=== PATIENT | female | born 1975 | race Caucasian/White ===

== ENCOUNTER 2019-05-05 12:39 | Outpatient (RCR) | payer OTHER, SELFPAY ==
--- NOTE | 2019-05-05 14:05 | PTOPEVAL ---
INITIAL PHYSICAL THERAPY EVALUATION and PLAN OF CARE Thank you for referring Kelle to [facility]. She will be seen in PT 2x/wk x 6 wks. Please review, sign, date and return this plan of care RAMAKRISHNA. I agree with and certify that the following plan of care is medically necessary. Referring Physician Date Admitting Provider: Attending Provider: PHYSICIAN NOT ON STAFF Referring Provider: *PT Outpatient Evaluation Start: 05/05/19 12:58 Freq: Status: Active Protocol: Document 05/05/19 12:45 AYUSH (Rec: 05/05/19 14:05 AYUSH [id number]) Therapy Assessment Status Assessment Status Assessment Status Evaluation Outpatient Past Medical History Neurological History Hx Migraine Yes Cardiovascular History Hx Hypertension Yes: states has HBP - no meds Respiratory History Hx Asthma Yes Musculoskeletal History Hx Other Musculoskeletal Disorders Yes: Fall at work 07/07/18 with RIGHT leg nerve damage Reproductive History Hx Other Reproductive Disorders Yes: cyst removed from L ovary -was 3 month at the time Evaluation Information 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 Was supposed to have PT - didn't happen. Went into a boot October 06, 2018 by a MD - doesn't remember his name. No PT was ordered. Dr. Elizondo sent a referral to [facility] - saw Dr. Hancock. Ordered PT - if this doesn't work - then going to pain management. R foot - pain - unable to touch foot too much - when goes to wash foot - has to be very gentle with it. When R foot is in boot - can keep foot straight, but if out of boot - turns foot outwards - needs to hold onto something - has fallen on occasions if tries to ambulate without knee scooter. Will travel through house on computer chair or have children go get item for her. Diagnostic Tests X-Rays For Thi
--- NOTE | 2019-06-04 08:53 | PCPTNOTE ---
PHYSICAL THERAPY DISCHARGE NOTE Admitting Provider: Attending Provider: PHYSICIAN NOT ON STAFF Patient:Kelle Cheema Date of :1975 Kelle has not returned for any further treatments since 05/05/2019, therefore she will be discharged at this time. Patient?s initial visit was on 05/05/2019 and that was the only visit she attended. She was phoned after approval for PT visits was obtained but she did not return the phone call and schedule visits. The goals have not been met. Thank you for referring Kelle to [facility]. Please review, sign, date and return this discharge summary RAMAKRISHNA. I have been updated about Kelle's current status and I agree with discharge from the above service at this time. Referring Physician Date
== END 2019-06-04 16:11 | disposition home or self-care (01) ==
LOC: ANHPT 12:39
PROVIDERS: PCP Emergency Medicine
DX: G90.50 Complex regional pain syndrome I, unspecified (principal)
CPT/HCPCS: 97162

== ENCOUNTER 2019-08-02 13:25 | Emergency (ER) | payer OTHER, SELFPAY ==
[2019-08-02 13:39] VITALS: BP 115/85; PULSE 67; RESP 16; TEMP 37.2; O2SAT 100
--- NOTE | 2019-08-02 13:44 | ED.LOWEXIN ---
HPI - Extremity Injury (Lower) General Chief Complaint: Extremity Injury, Lower Stated Complaint: leg pain Time Seen by Provider: 08/02/19 13:44 Source: patient Mode of arrival: ambulatory Limitations: no limitations History of Present Illness HPI Narrative: Kelle Cheema is a 43 yo female with a PMH of chronic pain from neuropathy/ Regional Pain syndrome , who comes to express care for c/o pain R thigh. Is in boot and using scooter. states she is out of TYlenol 3. Related Data Home Medications Medication Instructions Recorded Confirmed gabapentin 300 mg PO DAILY 12/26/18 08/02/19 acetaminophen-codeine 1 tablet Q6H PRN 08/02/19 08/02/19 Allergies Allergy/AdvReac Type Severity Reaction Status Date / Time aspirin Allergy Mild STOMACH Verified 12/26/18 10:22 ULCERS Sulfa (Sulfonamide AdvReac Unknown Vomiting Verified 08/02/19 13:42 Antibiotics) Honey Bee Allergy Unknown SWELLING Uncoded 12/26/18 10:22 Review of Systems Review of Systems: Narrative: CONSTITUTIONAL: Denies fever, chills, sweats. EYES: Denies visual changes, redness, discharge. ENT: Denies rhinorrhea, congestion, sore throat, otalgia. CARDIOVASCULAR: Denies chest pain, palpitations, edema. RESPIRATORY: Denies dyspnea, wheezing, cough GASTROINTESTINAL: Denies abdominal pain, nausea, vomiting, diarrhea. GENITOURINARY: Denies dysuria, hematuria, abnormal discharge SKIN: Denies rash or itching. NEUROLOGIC: Denies numbness, or focal weakness. PSYCHIATRIC: Denies anxiety or depression. Right thigh pain PMFSH Family History Family History Other No acute medical problems Social History Social History Smoking status: Never smoker Alcohol intake: current Gender identity (if verbalized by the patient): Female Comments At time of signature, I agree with nursing past medical, surgical, social and family history. There is no relevant family history pertinent to the presenting complaint. Exam Narrative: Exam Narrative: GENERAL: This is a well-nourished, well-developed patient, in mild distress. HEAD: normocephalic, atraumatic. EYES: Sclera clear/white. Vision is grossly intact. EARS: External ears normal. Hearing grossly intact. NOSE: External nose normal without nasal discharge, nares without redness, no rhinorrhea. THROAT: Mucous membranes moist, NECK: Neck supple, CARDIOVASCULAR: Regular rate and rhythm without murmurs, gallops, or rubs. RESPIRATORY: Clear to auscultation. Breath sounds equal bilaterally. No wheezes, rales, or rhonchi. GASTROINTESTINAL: Abdomen soft, SKIN: warm, intact with no suspicious lesions or rash, good texture and turgor. NEURO: awake, alert, and oriented to person, place and time. There were no obvious focal neurologic abnormalities. Steady gait EXTREMITIES: Normal range of motion. Right foot is in a boot. Complaining of to lateral side right thigh, appears superficial BACK: Nontender without deformity Course Course Emergency Course: Given baclofen as a muscle relaxant and small number of Tylenol 3 Discussed follow-up with primary care provider if muscle relaxant does not help with issue; she may need more imaging, patient verbalizes understanding. patient has not been in physical therapy for 2 months to [facility], receiving aftercare at [facility] verified no other Tylenol 3 prescriptions in their system Vital Signs Vital signs: Vital Signs Temperature 98.9 F 08/02/19 13:39 Pulse Rate 67 08/02/19 13:39 Respiratory Rate 16 08/02/19 13:39 Blood Pressure 115/85 08/02/19 13:39 Pulse Oximetry 100 08/02/19 13:39 Temperature 98.9 F 08/02/19 13:39 Pulse Rate 67 08/02/19 13:39 Respiratory Rate 16 08/02/19 13:39 Blood Pressure 115/85 08/02/19 13:39 Pulse Oximetry 100 08/02/19 13:39 MDM - Extremity Injury (Lower) Differential Diagnosis Differential diagnosi
== END 2019-08-02 14:19 | disposition home or self-care (01) ==
PROVIDERS: Emergency Provider Nurse Practitioner; PCP Emergency Medicine
DX: M62.838 Other muscle spasm (principal)
CPT/HCPCS: 99213; G0463

== ENCOUNTER 2019-09-22 13:57 | Emergency (ER) | payer OTHER, SELFPAY ==
[2019-09-22 14:11] VITALS: BP 128/70; PULSE 88; RESP 16; TEMP 37.2; O2SAT 99
--- NOTE | 2019-09-22 14:19 | ED.EXTPRO ---
HPI - Extremity Problem General Chief complaint: Extremity Problem,Nontraumatic Stated complaint: right leg muscle spams Time Seen by Provider: 09/22/19 14:19 Source: patient Mode of arrival: ambulatory Limitations: no limitations History of Present Illness HPI Narrative: Kelle Cheema is a 43 yo female with chronic regional pain syndrome who comes to here seeking additional muscle relaxants. She sees Dr. Elizondo who is referred her to pain management and they had DC'd her gabapentin and start her on Lyrica Dr Elizondo had been prescribing her muscle relaxants, then pain management was managing them. She has been unable to get a hold of the pain management doctor and Dr. Alford is tried to reach them also. Related Data Home Medications Medication Instructions Recorded Confirmed pregabalin 75 mg BID 09/22/19 09/22/19 Allergies Allergy/AdvReac Type Severity Reaction Status Date / Time aspirin Allergy Mild STOMACH Verified 12/26/18 10:22 ULCERS Sulfa (Sulfonamide AdvReac Unknown Vomiting Verified 08/02/19 13:42 Antibiotics) Honey Bee Allergy Unknown SWELLING Uncoded 12/26/18 10:22 Review of Systems Review of Systems: Narrative: CONSTITUTIONAL: Denies fever, chills, sweats. EYES: Denies visual changes, redness, discharge. ENT: Denies rhinorrhea, congestion, sore throat, otalgia. CARDIOVASCULAR: Denies chest pain, palpitations, edema. RESPIRATORY: Denies dyspnea, wheezing, cough GASTROINTESTINAL: Denies abdominal pain, nausea, vomiting, diarrhea. GENITOURINARY: Denies dysuria, hematuria, abnormal discharge SKIN: Denies rash or itching. NEUROLOGIC: Denies numbness, or focal weakness. PSYCHIATRIC: Denies anxiety or depression. Muscle relaxants for her regional pain syndrome of her right leg PMFSH Family History Family History (Updated 09/22/19 @ 14:23 by Valerie Balbuena CNP) Other Cerebrovascular accident Diabetes mellitus Heart disease Hypertension Social History Social History (Updated 09/22/19 @ 14:23 by Valerie Balbuena CNP) Smoking status: Never smoker Alcohol intake: never Gender identity (if verbalized by the patient): Female Comments At time of signature, I agree with nursing past medical, surgical, social and family history. There is no relevant family history pertinent to the presenting complaint. Exam Narrative: Exam Narrative: GENERAL: This is a well-nourished, well-developed patient, in moderate distress. HEAD: normocephalic, atraumatic. EYES: Sclera clear/white. Vision is grossly intact. EARS: External ears normal, auditory canals clear and without drainage, TMs normal without perforation. Hearing grossly intact. NOSE: External nose normal without nasal discharge, nares without redness, no rhinorrhea. THROAT: Mucous membranes moist, posterior pharynx NECK: Neck supple, non-tender CARDIOVASCULAR: Regular rate and rhythm without murmurs, gallops, or rubs. RESPIRATORY: Clear to auscultation. Breath sounds equal bilaterally. No wheezes, rales, or rhonchi. GASTROINTESTINAL: Abdomen soft, non-tender, SKIN: warm, intact with no suspicious lesions or rash, good texture and turgor. NEURO: awake, alert, and oriented to person, place and time. There were no obvious focal neurologic abnormalities. Steady gait EXTREMITIES: Normal range of motion on left; boot on right lower extremity unable to walk/weight-bear; she states that she has spasming in her lower l leg and toes BACK: Nontender without deformity Course Course Emergency Course: Patient given prescription for Flexeril-discussed use and pain management for chronic pain, and the providers will be reluctant to provide her additional medications because of the contracts involved in pain management. She is desperate because she is been unable to get a hold of her friction paint machine tender and has an appoint with him on October 04. I told her I would give her enough pills to hold her until that appointment only Vital Signs Vital signs:
== END 2019-09-22 14:41 | disposition home or self-care (01) ==
PROVIDERS: Emergency Provider Nurse Practitioner; PCP Emergency Medicine
DX: G57.71 Causalgia of right lower limb (principal)
CPT/HCPCS: 99213; G0463

== ENCOUNTER 2019-10-23 14:05 | Emergency (ER) | payer OTHER, SELFPAY ==
[2019-10-23 14:26] VITALS: BP 140/97; PULSE 98; RESP 16; TEMP 36.7; O2SAT 100
--- NOTE | 2019-10-23 14:50 | ED.SKABFB ---
HPI - Skin/Abscess/Foreign Bdy General Chief complaint: Skin/Abscess/Foreign Body Stated complaint: poison mickie rash Time Seen by Provider: 10/23/19 14:40 Source: patient and RN notes reviewed Mode of arrival: ambulatory Limitations: no limitations History of Present Illness HPI narrative: 43 year old female who [facility] with complaints of rash to her bilateral forearms and to top of bilateral ears since this morning which is itchy. Patient states that she has not applied any OTC medications to the rash. Patient denies any pain to the areas. Patient states that she thinks that rash is caused from something that her cat got into. Patient denies any other exposure to new soaps, laundry soap, medications, food, or any lotions or perfumes. MD complaint: rash Onset (ago): day(s) (1) Tetanus up to date: yes Location: head (top of ears), LUE and RUE Quality: pruritic Relieving factors: none Exacerbating factors: none Context: other (thinks that rash is from cat) Associated symptoms: denies other symptoms Treatments prior to arrival: none Related Data Allergies Allergy/AdvReac Type Severity Reaction Status Date / Time aspirin Allergy Mild STOMACH Verified 12/26/18 10:22 ULCERS Sulfa (Sulfonamide AdvReac Unknown Vomiting Verified 08/02/19 13:42 Antibiotics) Honey Bee Allergy Unknown SWELLING Uncoded 12/26/18 10:22 Review of Systems Review of Systems: Narrative: CONSTITUTIONAL: Denies fever, chills, or sweats. EYES: Denies visual changes, redness, or discharge. ENT: Denies rhinorrhea, congestion, sore throat, or otalgia. CARDIOVASCULAR: Denies chest pain, palpitations, or edema. RESPIRATORY: Denies cough or dyspnea. GASTROINTESTINAL: Denies abdominal pain, nausea, vomiting, or diarrhea. GENITOURINARY: Denies dysuria or hematuria. SKIN: Positive rash or itching to bilateral forearms and to the top of bilateral ears. MUSCULOSKELETAL: Denies back pain,positive for right ankle joint pain, or myalgia. NEUROLOGIC: Denies headache, numbness, or weakness. PSYCHIATRIC: Denies anxiety or depression. All systems reviewed & are unremarkable except as noted in HPI and below PMFSH Past Medical History Medical History (Updated 10/26/19 @ 19:53 by Vandana Curtis NP) Asthma Bronchitis Complex regional pain syndrome Cyst of ovary Migraines Pneumonia Surgical History Surgical History (Updated 10/26/19 @ 19:50 by Vandana Curtis NP) H/O dilation and curettage H/O: hysterectomy History of removal of ovarian cyst Previous section Family History Family History (Updated 09/22/19 @ 14:23 by Valerie Balbuena CNP) Other Cerebrovascular accident Diabetes mellitus Heart disease Hypertension Social History Social History (Updated 10/26/19 @ 19:48 by Vandana Curtis NP) Smoking status: Former smoker Tobacco type: cigarettes Alcohol intake: unknown Substance use type: opiates Living arrangements: with family Gender identity (if verbalized by the patient): Female Comments At time of signature, agree with nursing past medical, surgical, social and family history. There is no relevant family history pertinent to the presenting complaint Exam Narrative: Exam Narrative: GENERAL: Well-appearing, well-nourished, and in no acute distress. HEAD: Normocephalic, atraumatic. EYES: PERRLA and EOMI. ENT: Nares clear, no rhinorrhea or epistaxis. Mucous membranes moist. NECK: Supple. CHEST: Clear to auscultation. No respiratory distress. HEART: Regular rate and rhythm. No murmur heard. Normal peripheral pulses. ABDOMEN: Soft, nontender, nondistended, normal active bowel sounds. EXTREMITIES: Normal range of motion. No edema.RSD to right lower leg wearing walking boot an using knee scooter SKIN: Warm, dry,red small macular rash noted to bilateral inner forearms and to the top of both ears, no drainage or vesicles noted. Denies any pain to sites. NEURO: No focal deficits. Alert and
== END 2019-10-23 15:08 | disposition home or self-care (01) ==
PROVIDERS: Emergency Provider Registered Nurse; PCP Emergency Medicine
DX: L23.9 Allergic contact dermatitis, unspecified cause (principal); Z87.891 Personal history of nicotine dependence; J45.909 Unspecified asthma, uncomplicated
CPT/HCPCS: 99213; G0463

== ENCOUNTER 2019-12-23 15:00 | Outpatient (RCR) | payer OTHER, SELFPAY ==
--- NOTE | 2019-11-04 15:24 | PTOPEVAL ---
Thank you for referring Kelle Cheema to [facility].? The patient is scheduled to be seen for therapy? 1 x/week for 4 weeks. Please review, sign, date and return this plan of care RAMAKRISHNA. I agree with and certify that the following plan of care is medically necessary. Referring Physician Date Admitting Provider: Attending Provider: Torrie Mchugh, FUNERAL PLANNER-BC Referring Provider: *PT Outpatient Evaluation Start: 11/04/19 13:51 Freq: Status: Active Protocol: Document 11/04/19 13:57 TLM (Rec: 11/04/19 14:40 TLM [id number]) Therapy Assessment Status Assessment Status Assessment Status Evaluation Outpatient Past Medical History Past Medical History Source of Past Medical History Recalled from Previous Visit, Confirmed with Patient/Family Neurological History Hx Migraine Yes Hx Other Neurological Disorders Yes Respiratory History Hx Asthma Yes Gastrointestinal History Hx Ulcer Yes Genitourinary History Hx Genitourinary Disorders No Significant History Musculoskeletal History Hx Other Musculoskeletal Disorders Yes: regional pain syndrome, non healing injury to right lower leg,has walk boot Hx Section Yes Hx Hysterectomy Yes Hx Other Reproductive Disorders Yes: cyst removed from L ovary -was 3 month at the time Psychosocial History Hx Psychiatric Disorders No Significant History Pain History Has Past Pain Affected Your Daily Life Yes: regional pain syndrome History of Long-Term Prescription Pain Yes: Tylenol 3 Medication Use (Opiates) Evaluation Information Problem Diagnosis Chronic regional pain syndrome - R ankle Additional Evaluation Detail Diagnostic US findings 09/10/19 - Mild PF with spurring at calcaneal tubercle. - OA of subtalar and tibiotalar joints. - Chronic appearing low grade sprain of the deltoid ligaments. Subjective Information ~1 year ago fell into a Query Text:As Reported By Patient/ chicken cage at work that Family threw her into a fence. Rolled her R ankle. Continued to work on it. Went to ER about a week later where they did xrays and diagnoses with a R ankle sprain. Was using a knee
--- NOTE | 2019-12-01 13:58 | PCPTNOTE ---
Admitting Provider: Attending Provider: Torrie Mchugh, BODY AND FENDER WORKER-BC Patient:Kelle Cheema Date of :1975 Physical Therapy Discharge Note Patient has not returned for any further treatments since 11/04/2019, therefore she will be discharged at this time. Patient?s initial visit was on 10/30/2019 14:15 and she had a total of 1 visit due did not return our calls to schedule her follow-up visits. The goals have not been met due to only seen for initial evaluation. Thank you for referring this patient to [facility]. Please review, sign, date and return this discharge summary RAMAKRISHNA. I have been updated about the patient's current status and I agree with discharge from the above service at this time. Referring Physician Date
--- NOTE | 2019-12-02 14:46 | PCPTNOTE ---
Pt called to schedule a f/u visit after therapy DC note was written. Will plan to complete a therapy re-eval on 12/02/19 to determine therapy impairments, goal and need for additional skilled therapy services.
--- NOTE | 2019-12-02 16:58 | PTOPEVAL ---
PHYSICAL THERAPY REEVALUATION Thank you for referring Kelle Cheema to [facility].? The patient is scheduled to be seen for therapy? 1x/week for 4 weeks. Please review, sign, date and return this plan of care RAMAKRISHNA. I agree with and certify that the following plan of care is medically necessary. Referring Physician Date Attending Provider: Torrie Mchugh, SUSAN *PT Outpatient Evaluation Start: 11/04/19 13:51 Freq: Status: Active Protocol: Document 12/02/19 15:56 MLV (Rec: 12/02/19 16:52 [facility] [email or web address]) Therapy Assessment Status Evaluation Information Problem Diagnosis Chronic regional pain syndrome - R ankle Additional Evaluation Detail Diagnostic US findings 09/10/19 - Mild PF with spurring at calcaneal tubercle. - OA of subtalar and tibiotalar joints. - Chronic appearing low grade sprain of the deltoid ligaments. Subjective Information ~1 year ago fell into a Query Text:As Reported By Patient/ chicken cage at work that Family threw her into a fence. Rolled her R ankle. Continued to work on it. Went to ER about a week later where they did xrays and diagnoses with a R ankle sprain. Was using a knee scooter for a year and recently got an electric scooter that she's been using for mobility for 4 months. Unable to use knee scooter due to pain at R knee. Has been wearing walking boot for a year and presents to PT evaluation wearing it. Pt reports she had a PT evaluation in Mar 2019 where there therapist pulled on her R ankle which caused symptoms to start in her R shoulder/ elbow/fingers. Covid ramped up so she didn't make it to any treatments and didn't want to work with initial PT. Uses pillow under foot to get herself comfortable. Averages
--- NOTE | 2019-12-23 15:41 | PCPTNOTE ---
Addendum entered by Tanya Lara, PT 12/23/19 15:44: PHYSICAL THERAPY DISCHARGE NOTE: Original Note: Admitting Provider: Attending Provider: Torrie Mchugh, [employer] FOR[employer] SENIOR SERGEANT- Patient:Kelle Cheema Date of :1975 Patient has not been able to tolerate the minimal of therapy treatments since 12/16/2019, therefore she will be discharged at this time. The patient is not meeting any of her goals set. The patient?s initial visit was on 10/30/2019 14:15 and she had a total of 5 visits. PT recommended patient to follow up with her primary MD. Thank you for referring this patient to [facility]. Please review, sign, date and return this discharge summary RAMAKRISHNA. I have been updated about the patient's current status and I agree with discharge from the above service at this time. Referring Physician Date
== END 2019-12-25 09:33 | disposition home or self-care (01) ==
LOC: ANHPT 15:00
PROVIDERS: PCP Emergency Medicine; Visit Provider Nurse Practitioner Family
DX: M25.571 Pain in right ankle and joints of right foot (principal)
CPT/HCPCS: 97110; 97140; 97161; 97530

== ENCOUNTER 2020-09-02 16:16 | Emergency (ER) | payer OTHER, SELFPAY ==
[2020-09-02 16:23] VITALS: BP 150/95; PULSE 84; RESP 20; TEMP 36.4; O2SAT 100
--- NOTE | 2020-09-02 16:34 | ED.GENADULT ---
HPI - General Adult General Chief complaint: Skin/Abscess/Foreign Body Stated complaint: wound Time Seen by Provider: 09/02/20 16:34 Source: patient and RN notes reviewed Mode of arrival: ambulatory Limitations: no limitations History of Present Illness HPI narrative: 44-year-old female presents with a wound to the abdominal wall with tenderness, odor, and drainage for the past 7 days. Kelle reports having a piercing done and 2 days later noticed drainage and 7 days later intermittent drainage and odor, piercing removed resulted in splinting in skin. Peroxide cleaning and VAHID without relief. Denies swelling to the area. No streaking. Denies fever or chills. Denies nausea, vomiting, and abdominal pain. Tolerating po intake well. LMP hysterectomy. Remains active. The patient reports she has not been diagnosed with COVID-19. The patient reports she is not waiting for the results of a COVID-19 lab test. The patient reports she does not have weakness. The patient reports she does not have a new or worsening cough or shortness of breath. Denies chest pain. The patient reports she does not have any rhinorrhea, congestion, sore throat, loss of taste, and diarrhea. Denies recent traveling. Denies concerns for COVID-19 or exposures. At this time, the patient is not suspected of having COVID-19. Some parts of this dictation were generated by voice recognition software and may contain typographical and/or grammatical inaccuracies. Related Data Home Medications Medication Instructions Recorded Confirmed bupropion HCl 150 mg PO DAILY 09/02/20 09/02/20 duloxetine 60 mg PO BID 09/02/20 09/02/20 meloxicam 15 mg PO DAILY 09/02/20 09/02/20 pregabalin 100 mg PO BID 09/02/20 09/02/20 zolpidem 10 mg PO HS PRN 09/02/20 09/02/20 Allergies Allergy/AdvReac Type Severity Reaction Status Date / Time aspirin Allergy Mild STOMACH Verified 09/02/20 16:32 ULCERS Sulfa (Sulfonamide AdvReac Unknown Vomiting Verified 09/02/20 16:32 Antibiotics) Honey Bee Allergy Unknown SWELLING Uncoded 09/02/20 16:32 Review of Systems Review of Systems: Narrative: CONSTITUTIONAL: Denies fever, chills, sweats. EYES: Denies visual changes, redness, discharge. ENT: Denies rhinorrhea, congestion, sore throat, otalgia. CARDIOVASCULAR: Denies chest pain, palpitations, edema. RESPIRATORY: Denies dyspnea, wheezing, cough GASTROINTESTINAL: Denies abdominal pain, nausea, vomiting, diarrhea. SKIN: Complains of wound to the abdominal wall with tenderness, odor, and drainage. MUSCULOSKELETAL: Denies acute back pain, joint pain, or myalgia. NEUROLOGIC: Denies numbness or focal weakness. PSYCHIATRIC: Denies anxiety or depression. All other systems reviewed are negative, except as documented in HPI and below. [facility] Past Medical History Medical History Asthma Bronchitis Complex regional pain syndrome Cyst of ovary Migraines Pneumonia Surgical History Surgical History H/O dilation and curettage H/O: hysterectomy History of removal of ovarian cyst Previous section Family History Family History Other Cerebrovascular accident Diabetes mellitus Heart disease Hypertension Social History Social History (Updated 09/02/20 @ 17:34 by MIRIAN Michel) Smoking status: Former smoker Tobacco type: cigarettes Second hand tobacco smoke exposure: No Alcohol intake: never Substance use: current Substance use type: opiates Living arrangements: with family Occupation/Education: unemployed Gender identity (if verbalized by the patient): Female Sexual Orientation (if Verbalized by the Patient): Straight or Heterosexual Comments At time of signature, agree with the nurse past medical, surgical, social, and family history. There is no relevant famil
== END 2020-09-02 17:17 | disposition home or self-care (01) ==
PROVIDERS: Emergency Provider Nurse Practitioner Family; PCP Family Medicine
DX: S31.109A Unspecified open wound of abdominal wall, unspecified quadrant without penetration into peritoneal cavity, initial encounter (principal); X58.XXXA Exposure to other specified factors, initial encounter; J45.909 Unspecified asthma, uncomplicated; Z87.891 Personal history of nicotine dependence
CPT/HCPCS: 87070; 87075; 87205; 99202; 99203; G0463

== ENCOUNTER 2020-09-21 11:14 | Emergency (ER) | payer OTHER, SELFPAY ==
[2020-09-21 11:24] VITALS: BP 126/89; PULSE 91; RESP 20; TEMP 36.4; O2SAT 100
--- NOTE | 2020-09-21 11:30 | ED.GENADULT ---
HPI - General Adult General Chief complaint: Extremity Injury, Lower Stated complaint: right leg pain Time Seen by Provider: 09/21/20 11:30 Source: patient and RN notes reviewed Mode of arrival: ambulatory (with medical knee walker scooter) Limitations: no limitations History of Present Illness HPI narrative: 44-year-old female presents with complaints of chronic right shoulder and right leg pain for years. ?Kelle reports increasing pain over the past 4-5 days. ?Reports of a fall 3 days ago in which she hit left leg and has bruises. ?She is out of routine with Lyrica and needs a refill. Reports PMD is out for surgery or something and can not get an appointment and there is no other physician covering. ?Routine medications without relief. History of Complex regional pain syndrome. ?Kelle was treated here on 09/02/2020 and given 15 days of Nikole and instructed to follow-up with her PMD office. ?Denies new numbness or tingling. ?Spasms throughout the RT leg causing increasing pain. ?New injury mentioned above, patient voiced she knows it is nothing. ?Denies hitting head, loss of consciousness, syncopal episodes, dizziness, or seizure activity. ?Hurts with movement of RT shoulder. Intermittent radiating pain throughout RUE. ?No loss of mobility. ?No swelling. Exacerbating factor is movement. No relieving factors. ?The dominant hand is the RIGHT HAND. ?Denies fever or chills. ?Denies nausea, vomiting, and abdominal pain. Tolerating po intake well. ?LMP hysterectomy. ?Remains active. ?The patient reports she has not been diagnosed with COVID-19. ?The patient reports she is not waiting for the results of a COVID-19 lab test. ?The patient reports she does not have weakness. The patient reports she does not have a new or worsening cough or shortness of breath. ?Denies chest pain. ?The patient reports she does not have any rhinorrhea, congestion, sore throat, loss of taste, and diarrhea. ?Denies recent traveling. ?Denies concerns for COVID-19 or exposures. ?At this time, the patient is not suspected of having COVID-19. Some parts of this dictation were generated by voice recognition software and may contain typographical and/or grammatical inaccuracies. Related Data Home Medications Medication Instructions Recorded Confirmed bupropion HCl 150 mg PO DAILY 09/02/20 09/21/20 duloxetine 60 mg PO BID 09/02/20 09/21/20 pregabalin 100 mg PO BID 09/02/20 09/21/20 zolpidem 10 mg PO HS PRN 09/02/20 09/21/20 Allergies Allergy/AdvReac Type Severity Reaction Status Date / Time aspirin Allergy Mild STOMACH Verified 09/21/20 11:18 ULCERS Sulfa (Sulfonamide AdvReac Intermediate Vomiting Verified 09/21/20 11:18 Antibiotics) Honey Bee Allergy Severe SWELLING Uncoded 09/21/20 11:18 Review of Systems Review of Systems: CONSTITUTIONAL: Denies fever, chills, sweats. Complaints of needing medication refilled. EYES: Denies visual changes, redness, discharge. ENT: Denies rhinorrhea, congestion, sore throat, otalgia. CARDIOVASCULAR: Denies chest pain, palpitations, edema. RESPIRATORY: Denies dyspnea, wheezing, cough. GASTROINTESTINAL: Denies abdominal pain, nausea, vomiting, diarrhea. SKIN: Denies rash or itching. Complaints of bruising to the left lower leg after a recent fall. MUSCULOSKELETAL: Denies acute back pain or myalgia. Complains of chronic right shoulder and right leg pain, intermittent spasms. NEUROLOGIC: Denies numbness or focal weakness. PSYCHIATRIC: Denies anxiety or depression. All other systems reviewed & are unremarkable except as noted in HPI and below. [facility] Past Medical History Medical History Asthma Bronchitis Complex regional pain syndrome Cyst of ovary Migraines Pneumonia Surgical History Surgical History H/O dilation and curettage H/O: hysterectomy History of removal of ovarian cyst Previous se
== END 2020-09-21 12:15 | disposition home or self-care (01) ==
PROVIDERS: Emergency Provider Nurse Practitioner Family; PCP Family Medicine
DX: G89.29 Other chronic pain (principal); M25.511 Pain in right shoulder; M79.604 Pain in right leg; J45.909 Unspecified asthma, uncomplicated; Z87.891 Personal history of nicotine dependence
CPT/HCPCS: 99212; G0463

== ENCOUNTER 2022-10-11 13:57 | Emergency (ER) | payer OTHER, SELFPAY ==
[2022-10-11 14:06] VITALS: BP 127/71; PULSE 86; RESP 18; TEMP 36.3; O2SAT 100
--- NOTE | 2022-10-11 14:21 | ED.SKABFB ---
HPI - Skin/Abscess/Foreign Bdy General Chief complaint: Skin/Abscess/Foreign Body Stated complaint: rash Time Seen by Provider: 10/11/22 14:17 Source: patient and RN notes reviewed Mode of arrival: ambulatory Limitations: no limitations History of Present Illness HPI narrative: Patient presents today complaining of possible exposure to poison mickie and pruritic rash to her neck since yesterday. States that she was likely exposed to poison mickie from her dog rolling around by it. She has tried cold compresses, but no other treatment prior to arrival. Related Data Home Medications Medication Instructions Recorded Confirmed bupropion HCl 150 mg 24 hr tablet, 150 mg PO DAILY 09/02/20 10/11/22 extended release duloxetine 60 mg capsule,delayed 60 mg PO BID 09/02/20 10/11/22 release pregabalin 100 mg capsule 100 mg PO BID 09/02/20 10/11/22 zolpidem 10 mg tablet 10 mg PO HS PRN Insomnia 09/02/20 10/11/22 Allergies Allergy/AdvReac Type Severity Reaction Status Date / Time aspirin Allergy Mild STOMACH Verified 10/11/22 14:07 ULCERS Sulfa (Sulfonamide AdvReac Intermediate Vomiting Verified 10/11/22 14:07 Antibiotics) Honey Bee Allergy Severe SWELLING Uncoded 10/11/22 14:07 Review of Systems Review of Systems: CONSTITUTIONAL: Denies body aches, fever, chills, or sweats. EYES: Denies visual changes, redness, or discharge. ENT: Denies rhinorrhea, congestion, sore throat, or otalgia. CARDIOVASCULAR: Denies chest pain, palpitations, or edema. RESPIRATORY: Denies cough or dyspnea. GASTROINTESTINAL: Denies abdominal pain, nausea, vomiting, or diarrhea. GENITOURINARY: Denies dysuria or hematuria. SKIN: + severely pruritic rash to neck MUSCULOSKELETAL: Denies back pain, joint pain, or myalgia. NEUROLOGIC: Denies headache, numbness, tingling, or weakness. PSYCH: Denies depression or anxiety. [facility] Past Medical History Medical History Asthma Bronchitis Complex regional pain syndrome Cyst of ovary Migraines Pneumonia Surgical History Surgical History H/O dilation and curettage H/O: hysterectomy History of removal of ovarian cyst Previous section Family History Family History Other Cerebrovascular accident Diabetes mellitus Heart disease Hypertension Social History Social History Smoking status: Former smoker Tobacco type: cigarettes Second hand tobacco smoke exposure: No Alcohol intake: never Substance use: current Substance use type: opiates Living arrangements: with family Occupation/Education: unemployed Gender identity (if verbalized by the patient): Female Sexual Orientation (if Verbalized by the Patient): Straight or Heterosexual Comments At time of signature, I have reviewed and agree with nursing past medical, surgical, social and family history unless otherwise noted. Please see nursing chart for further information. There is no relevant family history pertinent to the presenting complaint Exam Narrative: GENERAL: Well-appearing, well-nourished, and in no acute distress. HEAD: Normocephalic, atraumatic. EYES: EOMI. No redness or drainage. Conjunctivae normal. ENT: Mucous membranes pink and moist. NECK: Normal AROM. CHEST: No respiratory distress. EXTREMITIES: Normal range of motion. No edema. SKIN: Warm, dry. Capillary refill normal. Normal skin turgor. Erythematous papular rash to bilateral anterior neck with few small vesicles. No induration or active drainage. NEURO: No focal deficits. Alert and oriented x3. Gait steady. PSYCH: Normal affect. No signs of depression or anxiety. Course Course Level of Care: Express Care Visit Vital Signs Vital signs: Vital Signs Temperature 97.4 F L
== END 2022-10-11 14:30 | disposition home or self-care (01) ==
PROVIDERS: Emergency Provider Nurse Practitioner; PCP Physician Assistant
DX: L25.5 Unspecified contact dermatitis due to plants, except food (principal); Z87.891 Personal history of nicotine dependence; J45.909 Unspecified asthma, uncomplicated
CPT/HCPCS: 99213; G0463

== ENCOUNTER 2023-09-01 15:39 | Emergency (ER) | payer OTHER, SELFPAY ==
[2023-09-01 15:48] VITALS: BP 137/82; PULSE 74; RESP 16; TEMP 36.6; O2SAT 100
--- NOTE | 2023-09-01 15:48 | ED.SKABFB ---
HPI - Skin/Abscess/Foreign Bdy General Chief complaint: Skin/Abscess/Foreign Body Stated complaint: EARACHE/RASH Time Seen by Provider: 09/01/23 15:48 History of Present Illness HPI narrative: patient presents with complaints of rash to bilateral lower legs and a right-sided earache. She reports that Lenard has been present for approximately 3 days. She is unclear about the timeline to the rash on her legs. She believes the rash is poison mickie. She denies any fever, chills, sweats. Denies any runny nose or sore throat Related Data Home Medications Medication Instructions Recorded Confirmed pregabalin 100 mg capsule 100 mg PO BID 09/02/20 10/11/22 B Complex-Vitamin B12 09/01/23 meloxicam 15 mg tablet mg 09/01/23 Allergies Allergy/AdvReac Type Severity Reaction Status Date / Time aspirin Allergy Mild STOMACH Verified 10/11/22 14:07 ULCERS Sulfa (Sulfonamide AdvReac Intermediate Vomiting Verified 10/11/22 14:07 Antibiotics) Honey Bee Allergy Severe SWELLING Uncoded 10/11/22 14:07 Review of Systems Review of Systems: All systems reviewed & are unremarkable except as noted in HPI and below Constitutional: Constitutional: Reports as per HPI and Reports no additional constitutional complaints ENT: Reports system reviewed and no additional complaints, except as documented and Reports otalgia Cardiovascular: Cardiovascular: Reports no additional cardiovascular complaints Respiratory: Respiratory: Reports no additional respiratory complaints Integumentary/Breasts: Skin/Breast: Reports rash Comments: bilat legs PMFSH Past Medical History Medical History Asthma Bronchitis Complex regional pain syndrome Cyst of ovary Migraines Pneumonia Surgical History Surgical History H/O dilation and curettage H/O: hysterectomy History of removal of ovarian cyst Previous section Family History Family History Other Cerebrovascular accident Diabetes mellitus Heart disease Hypertension Social History Social History Smoking status: Former smoker Tobacco type: cigarettes Second hand tobacco smoke exposure: No Alcohol intake: never Substance use: current Substance use type: opiates Living arrangements: with family Occupation/Education: unemployed Gender identity (if verbalized by the patient): Female Sexual Orientation (if Verbalized by the Patient): Straight or Heterosexual Exam Const: General: cooperative, no acute distress, alert and awake Orientation/consciousness: oriented to person, oriented to place and oriented to time HENMT: Head: normal to inspection Ears: external ears normal, TM's normal bilaterally and EAC's normal Mouth: Yes moist mucous membranes Throat: no postnasal drainage Resp: Effort & Inspection: normal respiratory effort and able to speak in complete sentences Auscultation: clear to auscultation bilaterally, no crackles, no rales, no rhonchi and no wheezes Cardio: Palpation: normal PMI Rate: regular rate Rhythm: regular rhythm Heart sounds: S1 normal heart sound present and S2 normal heart sound present Skin: Other: there are several scattered macules to bilateral legs. Some Marco A though they have been scratched and have scabs. They are in multiple stages of healing, some appear almost to be scarred. They are consistent with insect bites, not at all consistent with poison mickie Neuro: General: oriented to person, oriented to place and oriented to time Cranial nerves: Yes CN's II-XII intact bilaterally Psych: Appearance: grossly normal Thought process: Normal thought process present Insight: Good insight present (Psych) Judgement: Good judgement present (Psych) Course Course Level of Care: Express Care Vis
== END 2023-09-01 16:20 | disposition home or self-care (01) ==
PROVIDERS: Emergency Provider Nurse Practitioner Family; PCP Physician Assistant
DX: L30.9 Dermatitis, unspecified (principal); S80.862A Insect bite (nonvenomous), left lower leg, initial encounter; S80.861A Insect bite (nonvenomous), right lower leg, initial encounter; W57.XXXA Bitten or stung by nonvenomous insect and other nonvenomous arthropods, initial encounter; Z87.891 Personal history of nicotine dependence; J45.909 Unspecified asthma, uncomplicated
CPT/HCPCS: 99213; G0463

== ENCOUNTER 2024-01-12 10:16 | Emergency (ER) | payer OTHER, SELFPAY ==
--- NOTE | ~2024-01-12 | XR_ITS ---
EXAMINATION: XR chest 2V DATE: 01/12/2024 11:25 INDICATION: Shortness of breath TECHNIQUE: frontal and lateral views of the chest were obtained. COMPARISON: Chest radiograph dated 09/19/2005 FINDINGS: The lungs are clear with no focal airspace opacities, pulmonary edema, pleural effusion or pneumothor ax. The cardiomediastinal silhouette is normal. Mild thoracic spondylosis. IMPRESSION: 1. No acute cardiopulmonary disease. Reviewed, dictated and finalized at location A. OUT WAITER/WAITRESS
[2024-01-12 10:45] VITALS: BP 137/66; PULSE 85; RESP 24; TEMP 36.6; O2SAT 99
--- NOTE | 2024-01-12 11:08 | ED_ITS ---
HPI - General Adult General Chief complaint: Upper Respiratory Infection Stated complaint: chest tightness Time Seen by Provider: 01/12/24 11:08 Source: patient Mode of arrival: ambulatory Limitations: no limitations History of Present Illness HPI narrative: 48-year-old female patient presents to the [facility] with complaints of shortness of breath and some chest tightness. Patient does have a history of asthma and was a former smoker but quit about 24 years ago. Denies any fevers, body aches or chills that she is aware of. Patient states she has had a very bad cough and chest tightness but denies any congestion, runny nose. Denies any ear pain or sore throat. Denies any abdominal pain, nausea, vomiting or diarrhea. Related Data Home Medications Medication Instructions Recorded Confirmed pregabalin 100 mg capsule 100 mg PO BID 09/02/20 10/11/22 B Complex-Vitamin B12 09/01/23 meloxicam 15 mg tablet mg 09/01/23 Allergies Allergy/AdvReac Type Severity Reaction Status Date / Time aspirin Allergy Mild STOMACH Verified 01/12/24 10:59 ULCERS Sulfa (Sulfonamide AdvReac Intermediate Vomiting Verified 01/12/24 10:59 Antibiotics) Honey Bee Allergy Severe SWELLING Uncoded 01/12/24 10:59 Review of Systems Review of Systems: CONSTITUTIONAL: Denies fever, chills, or sweats. EYES: Denies visual changes, redness, or discharge. ENT: Denies rhinorrhea, congestion, sore throat, or otalgia. CARDIOVASCULAR: positive chest tightness, denies palpitations, or edema. RESPIRATORY: Positive cough with dyspnea. GASTROINTESTINAL: Denies abdominal pain, nausea, vomiting, or diarrhea. GENITOURINARY: Denies dysuria or hematuria. SKIN: Denies rash or itching. MUSCULOSKELETAL: Denies back pain, joint pain, or myalgia. NEUROLOGIC: Denies headache, numbness, or weakness. PSYCHIATRIC: Denies anxiety or depression. [facility] Past Medical History Medical History Asthma Bronchitis Complex regional pain syndrome Cyst of ovary Migraines Pneumonia Surgical History Surgical History H/O dilation and curettage H/O: hysterectomy History of removal of ovarian cyst Previous section Family History Family History Other Cerebrovascular accident Diabetes mellitus Heart disease Hypertension Social History Social History Smoking status: Former smoker Tobacco type: cigarettes Second hand tobacco smoke exposure: No Alcohol intake: never Substance use: current Substance use type: opiates Living arrangements: with family Occupation/Education: unemployed Gender identity (if verbalized by the patient): Female Sexual Orientation (if Verbalized by the Patient): Straight or Heterosexual Comments At the time of my signature I agree with nursing past medical history, surgical, social, and family history. There is no relevant family history pertinent to the presenting complaint. Exam Narrative: GENERAL: ill-appearing, well-nourished, and in no acute distress. HEAD: Normocephalic, atraumatic. EYES: PERRLA and EOMI. ENT: Nares with erythema edema noted bilaterally, no rhinorrhea or epistaxis. Mucous membranes moist. posterior pharynx with no erythema, tonsillar enlargement, exudates or lesions present. Bilateral TMs are clear no erythema or foreign bodies the canal. NECK: Supple. No lymphadenopathy CHEST: Clear to auscultation. Patient is talking in broken sentences and is taking some big deep breaths and does appear some what struggling with shortness of breath. No tripoding noted HEART: Regular rate and rhythm. No murmur heard. Normal peripheral pulses. ABDOMEN: Soft, nontender, nondistended, normal active bowel sounds. EXTREMITIES: Normal range of motion. No edema. SKIN: Warm, dry, no rash. NEURO: No focal deficits. Alert and oriented x3. Course Course Level of Care: Express Care Visit Reevaluation(s) Reevaluation #1: re-evaluated patient notified her that her x-ray EKG looks good and did not suggest any type of cardiac or pulmonary issue going on. Her viral swabs were also negative today as well. Discussed with her she could have a virus and has having the asthma exacerbation to it which we will go ahead and provide her a DuoNeb before discharging her today and discharge her home with an inhaler, steroids and Tessalon Perles for the coughing. Discussed with patient patient states she has had heartburn before in the past will discharge home with some omeprazole which could definitely could case a cough and chest tightness as well. Discussed with patient that she should decrease her high acid foods. Patient verbalized understanding denies any other questions or concerns at this time. Date: 01/12/24 Time: 12:00 Vital Signs Vital signs: Vital Signs Temperature 36.6 C 01/12/24 10:45 Pulse Rate 85 01/12/24 10:45 Respiratory Rate 24 H 01/12/24 10:45 Blood Pressure 137/66 01/12/24 10:45 Pulse Oximetry 99 01/12/24 10:45 Oxygen Delivery Room Air 01/12/24 10:45 Temperature 36.6 C 01/12/24 10:45 Pulse Rate 85 01/12/24 10:45 Respiratory Rate 24 H 01/12/24 10:45 Blood Pressure 137/66 01/12/24 10:45 Pulse Oximetry 99 01/12/24 10:45 Oxygen Delivery Room Air 01/12/24 10:45 Vital signs reviewed. Medical Decision Making MDM Narrative Medical decision making narrative: plan of care patient is to check an EKG, chest x-ray to swab her for COVID and influenza. I will reassess her once this has resulted Differential Diagnosis Differential Diagnosis: Differential diagnosis: Allergic rhinitis, chronic sinusitis, tonsillitis, acute sinusitis, infectious mononucleosis, seasonal influenza, pertussis, diphtheria, meningococcal disease, viral syndrome, viral bronchitis, RSV, COVID- 19 Vital Signs Vital Signs: Vital Signs Temperature 36.6 C 01/12/24 10:45 Pulse Rate 85 01/12/24 10:45 Respiratory Rate 24 H 01/12/24 10:45 Blood Pressure 137/66 01/12/24 10:45 Pulse Oximetry 99 01/12/24 10:45 Oxygen Delivery Room Air 01/12/24 10:45 Temperature 36.6 C 01/12/24 10:45 Pulse Rate 85 01/12/24 10:45 Respiratory Rate 24 H 01/12/24 10:45 Blood Pressure 137/66 01/12/24 10:45 Pulse Oximetry 99 01/12/24 10:45 Oxygen Delivery Room Air 01/12/24 10:45 Lab Data Labs: Lab Results 01/12/24 Range/Units 11:39 POC Influenza A Ag Negative (Negative) POC Influenza B Ag Negative (Negative) POC SARS CoV-2 Ag Negative (Negative) Imaging Data Radiologist's impression: [facility] [address] [address] XRay Report Signed Patient: Kelle Cheema : 1975 MR#: [id number] Age: 48 Acct:[id number] Loc: [facility] ADM Date: 01/12/24Attending Dr: Ordering Physician: Chuyita Hazel APRN Date of Service: 01/12/24 Procedure(s): XR chest 2V Accession Number(s): [id number] cc: Jack, Radha Alegria PA-C; Chuyita Hazel APRN~ EXAMINATION: XR chest 2V DATE: 01/12/2024 11:25 INDICATION: Shortness of breath TECHNIQUE: frontal and lateral views of the chest were obtained. COMPARISON: Chest radiograph dated 09/19/2005 FINDINGS: The lungs are clear with no focal airspace opacities, pulmonary edema, pleural effusion or pneumothorax. The cardiomediastinal silhouette is normal. Mild thoracic spondylosis. IMPRESSION: 1. No acute cardiopulmonary disease. Reviewed, dictated and finalized at location A. ANALYSIS ASSISTANT Dictated By: Baron Melton MD 01/12/24 1142 Signed By: <Electronically signed by Baron Melton MD in OV> ECG Data EKG #1: Interpretation: Sinus rhythm. Normal ECG. Unconfirmed report. Vent rate: 69 IL interval: 147 QRS duration: 94 QT/ QTC: 375/394 P-R- T axes: 37, 4, 27. Critical Care Time Critical Care Time Critical Care Time: No Discharge Plan Discharge Clinical Impression: Viral URI with cough, Chest pain due to GERD Patient Disposition: Home, Self-Care Condition: Stable Instructions: Antibiotic Form, GERD (Gastroesophageal Reflux Disease) (ED) Additional Instructions: Viral illness may last between 7-12days; antibiotic is NOT recommended at this time. Recommend antihistamine such as Benadryl at night time and Claritin/Zyrtec/Dalila during the day Cough syrup may cause drowsiness; avoid driving or take it at night time. Use inhaler as needed for cough, wheezing, shortness of breath or chest tightness. Also, recommend symptomatic treatment includes: rest, fluids, and increase humidity of the air at home. Recommend Acetaminophen or nonsteroidal anti-inflammatory agents (NSAIDs) as directed in the bottle to reduce fever and/pain/headache. Avoid smoking/second-hand smoke. Limit visits to areas with large crowds. Please schedule a follow-up visit with your personal physician for further evaluation and treatment within 3-5days. Including recheck and discussion of your blood pressure. If your symptoms persist, change or worsen significantly before you can contact your personal physician then please, without delay, go to the emergency department for further evaluation. Prescriptions: New benzonatate 200 mg capsule 200 mg PO TID PRN (Reason: cough) 10 Days Qty: 30 0RF prednisone 20 mg tablet 40 mg PO DAILY 5 Days Qty: 10 0RF albuterol sulfate [Ventolin HFA] 90 mcg/actuation HFA aerosol inhaler 2 puff INHALATION .Q4 hours PRN (Reason: cough) Qty: 18 0RF omeprazole 20 mg capsule,delayed release(DR/EC) 20 mg PO DAILY 30 Days Qty: 30 0RF No Action pregabalin 100 mg capsule 100 mg PO BID B Complex-Vitamin B12 meloxicam 15 mg tablet Follow-up/Referrals: Jack,TANIKA Lopez [Primary Care Provider] -
--- NOTE | 2024-01-12 11:16 | ECG_ITS ---
Test Date: 2024-01-12 11:36:48 Measurements Intervals [place] Rate: 69 P: 37 AL: 147 QRS: 4 QRSD: 94 T: 27 QT: 375 QTc: 403 Interpretive Statements SINUS RHYTHM BASELINE ARTIFACT- I, II, III, AVR, AVL ,AVF NORMAL ECG No previous ECG available for comparison Electronically Signed On 01-12-2024 12:00:37 CUSTOMER SUPPORT SPECIALIST by Luis Velarde D.O.
[2024-01-12 11:43] LABS: EDCOVIDSCREEN Negative (Negative); EDINFLUASCREEN Negative (Negative); EDINFLUBSCREEN Negative (Negative)
[2024-01-12] MEDS: IPRATROPIUM 0.5 MG/ALBUTEROL SULFATE 2.5 MG AMPUL.NEB 3 ML INHALATION (12:05)
== END 2024-01-12 12:22 | disposition home or self-care (01) ==
PROVIDERS: Emergency Provider Nurse Practitioner Family; PCP Physician Assistant
DX: J06.9 Acute upper respiratory infection, unspecified (principal); R05.9 Cough, unspecified; K21.9 Gastro-esophageal reflux disease without esophagitis; Z20.822 Contact with and (suspected) exposure to COVID-19; J45.909 Unspecified asthma, uncomplicated
CPT/HCPCS: 71046; 87426; 87804; 93005; 94640; 99213; G0463

== ENCOUNTER 2024-01-17 15:16 | Emergency (ER) | payer OTHER, SELFPAY ==
[2024-01-17 15:31] VITALS: BP 134/77; PULSE 81; RESP 16; TEMP 35.8; O2SAT 100
--- NOTE | 2024-01-17 15:42 | ED.RECABL ---
HPI - Recheck/Abnormal Lab/Rx General Chief Complaint: Extremity Problem,Nontraumatic Stated Complaint: RT Side of Body Pain Time Seen by Provider: 01/17/24 15:40 Source: patient Mode of arrival: ambulatory Limitations: no limitations History of Present Illness HPI narrative: eKlle is a 48-year-old female patient presenting to the clinic today with complaints of right-sided body pain. She has a history of complex regional pain syndrome. States she has been out of her medication (Lyrica)since Saturday and has been trying to get a hold of her primary care provider. States she is unable to get a hold of the primary care provider and she is out of her medications and is having pain to the right side of her body. Denies any other symptoms. Patient reports that she is not seeking drugs. Related Data Home Medications Medication Instructions Recorded Confirmed meloxicam 15 mg tablet 15 mg DIRECTED 09/01/23 01/17/24 vitamin B complex 1 tablet PO DAILY 01/12/24 01/17/24 Allergies Allergy/AdvReac Type Severity Reaction Status Date / Time aspirin Allergy Mild STOMACH Verified 01/12/24 10:59 ULCERS Sulfa (Sulfonamide AdvReac Intermediate Vomiting Verified 01/12/24 10:59 Antibiotics) Honey Bee Allergy Severe SWELLING Uncoded 01/12/24 10:59 Review of Systems Review of Systems: Pertinent positives per HPI. Patient denies any fever, chills, rash, headache, visual changes, dizziness, cough, runny nose, sore throat, shortness of breath, chest pain, palpitations, nausea, vomiting, diarrhea, constipation, abdominal pain, or any urinary issues. PMFSH Past Medical History Medical History Asthma Bronchitis Complex regional pain syndrome Cyst of ovary Migraines Pneumonia Surgical History Surgical History H/O dilation and curettage H/O: hysterectomy History of removal of ovarian cyst Previous section Family History Family History Other Cerebrovascular accident Diabetes mellitus Heart disease Hypertension Social History Social History Smoking status: Former smoker Tobacco type: cigarettes Second hand tobacco smoke exposure: No Alcohol intake: never Substance use: current Substance use type: opiates Living arrangements: with family Occupation/Education: unemployed Gender identity (if verbalized by the patient): Female Sexual Orientation (if Verbalized by the Patient): Straight or Heterosexual Comments At the time of my signature, I reviewed and agree with the nursing past medical, surgical, social, and family history. There is no relevant family history pertinent to the patient complaint. Exam Narrative: General: Well-developed, well nourished, in no apparent distress Head: Normocephalic, atraumatic. Cardio: Regular rate and rhythm, s1 and s2 normal, no murmur appreciated. Resp: Clear to auscultation bilaterally, no rhonchi, rales, wheezing or rubs. Extremities: No deformity, no edema, no cyanosis, capillary refill less than 2 seconds, peripheral pulses palpable and strong. Integumentary: [place], warm, and dry, intact without lesion, no rashes. Course Course Emergency Course: Portions of this record may have been created with voice recognition software. Level of Care: Express Care Visit Vital Signs Vital signs: Vital Signs Temperature 35.8 C L 01/17/24 15:31 Pulse Rate 81 01/17/24 15:31 Respiratory Rate 16 01/17/24 15:31 Blood Pressure 134/77 01/17/24 15:31 Pulse Oximetry 100 01/17/24 15:31 Oxygen Delivery Room Air 01/17/24 15:31 Temperature 35.8 C L 01/17/24 15:31 Pulse Rate 81 01/17/24 15:31 Respiratory Rate 16 01/17/24 15:31 Blood Pressure 134/77 01/17/24 15:31 Pulse Oximetry 100 01/17/24 15:31 Oxygen Delivery Room Air 01/17/24 15:31 Vital signs reviewed MDM - Recheck/Abnormal Lab/Rx MDM Narrative Medical decision making narrative: At the time of visit patient is resting comfortably on the exam table. Patient appears to be nontoxic. Plan: Offered Toradol 60 mg IM in the clinic today and patient declined. Patient has history of complex regional pain syndrome/neuropathy. One week prescription of Lyrica was sent to the pharmacy. Made patient aware that this is a 1 time refill and we cannot continue to refill this for her as this is a controlled substance. Supportive measures were discussed with the patient and they voiced understanding discharge instructions and agrees to treatment plan. Return precautions reviewed Differential Diagnosis Differential diagnosis: Likely encounter for medication refill Discharge Plan Discharge Clinical Impression: Complex regional pain syndrome Patient Disposition: Home, Self-Care Condition: Stable Instructions: Antibiotic Form, Medicine Refill (ED) Additional Instructions: Pregabalin medication refill was sent to the pharmacy This medication refill was a one time event. We can not continue to refill this medication for you as it is a controlled substance Follow-up with your doctor as soon as possible for medication refill Prescriptions: New pregabalin 200 mg capsule 200 mg PO BID 7 Days Qty: 14 0RF No Action benzonatate 200 mg capsule 200 mg PO TID PRN (Reason: cough) 10 Days Qty: 30 0RF albuterol sulfate [Ventolin HFA] 90 mcg/actuation HFA aerosol inhaler 2 puff INHALATION .Q4 hours PRN (Reason: cough) Qty: 18 0RF omeprazole 20 mg capsule,delayed release(DR/EC) 20 mg PO DAILY 30 Days Qty: 30 0RF vitamin B complex [B Complex-Vitamin B12] Tablet 1 tablet PO DAILY meloxicam 15 mg tablet 15 mg DIRECTED Follow-up/Referrals: PHYSICIAN,NATURAL RESOURCE ECONOMIST [Primary Care Provider] - Time of Disposition: 15:49 Quality NIHSS Nursing Documentation ED NIHSS nursing documentation: reviewed/agree
== END 2024-01-17 16:16 | disposition home or self-care (01) ==
PROVIDERS: Emergency Provider Nurse Practitioner Family
DX: G90.50 Complex regional pain syndrome I, unspecified (principal); Z87.891 Personal history of nicotine dependence; J45.909 Unspecified asthma, uncomplicated
CPT/HCPCS: 99213; G0463

== ENCOUNTER 2024-05-06 16:40 | Emergency (ER) | payer OTHER, SELFPAY ==
--- NOTE | ~2024-05-06 | XR_ITS ---
HISTORY: RT foot pain lat/across top foot/into toes fell 4x days ago COMPARISON: 09/12/2018 TECHNIQUE: 3 views of the right foot were performed FINDINGS: No acute fracture or dislocation is appreciated. No significant degenerative disease is noted. The base of the fifth metatarsal is intact. No calcaneal spur is noted. No significant soft tissue swelling is present. IMPRESSION: No acute fracture or dislocation. Reviewed, dictated and finalized at location A.
[2024-05-06 16:52] VITALS: BP 143/81; PULSE 84; RESP 16; TEMP 36; O2SAT 100
--- OUTSIDE RECORDS SUMMARY | 2024-05-06 17:18 | XMS_ITS | Clinical Summary ---
Author Organization [facility] Address [address] [place] [address] Phone Care Team Providers Care Multimedia Assistant Name Role Phone JackRadha nieves Alexandro LYNN Primary Care Provider [phone] Tarik Leung MD Unavailable [phone] Allergies Active Allergy Reactions Criticality Noted Date Comments Aspirin Other (see Comments) 08/23/2021 edema Sulfa Antibiotics Other (see Comments) 08/24/19 edema Medications buPROPion (WELLBUTRIN) 75 MG Tablet Take 75 mg by mouth 2 times daily. Active cyclobenzaprine (FLEXERIL) 10 MG Tablet Take 10 mg by mouth nightly. prn Active DULoxetine (CYMBALTA) [address] Particles Take 60 mg by mouth 2 times daily. Active hydrOXYzine (ATARAX) 25 MG Tablet Take 25 mg by mouth every 6 hours as needed. Active meloxicam (MOBIC) 15 MG Tablet Take 15 mg by mouth daily. Active pregabalin (LYRICA) 200 MG Capsule Take 200 mg by mouth 2 times daily. Active triamcinolone (KENALOG) 0.1 % Cream Apply 2 times daily. Active sertraline (ZOLOFT) 25 MG Tablet Take 25 mg by mouth daily. 12/08/2021 Active Family History Medical History Relation Name Comments Asthma Mother Diabetes Mother Stroke Mother Relation Name Status Comments Mother Social History Tobacco Use Types Packs/Day Years Used Date Smoking Tobacco: Former Smokeless Tobacco: Never Alcohol Use Standard Drinks/Week Comments Not Currently 0 (1 standard drink = 0.6 oz pur e alcohol) Comments Unknown Sex and Gender Information Value Date Recorded Sex Assigned at Not on file Legal Sex Female 9:45 AM CDT Gender Identity Not on file Sexual Orientation Not on file Last Filed Vital Signs Vital Sign Reading Time Taken Comments Blood Pressure 126/76 12/22/2021 1:26 PM CDT Pulse 98 12/22/2021 1:26 PM CDT Temperature 35.8 C (96.4 F) 12/22/2021 1:26 PM CDT Respiratory Rate 18 12/22/2021 1:26 PM CDT Oxygen Saturation 97% 12/22/2021 1:26 PM CDT Inhaled Oxygen Concentration - - Weight 90.7 kg (200 lb) 12/22/2021 1:26 PM CDT Height 172.7 cm (5' 8 ) 12/22/2021 1:26 PM CDT Body Mass Index 30.41 12/22/2021 1:26 PM CDT Plan of Treatment Health Maintenance Due Date Last Done Comments Hepatitis C Virus (HCV) Screening 1977 Mammogram 1977 Hepatitis B Immunization (1 of 3 - 19+ 3-dose series) 1996 Pap Smear 1998 Cervical Cancer Screening (CCS) 11/19/2007 HPV/Cotest 11/19/2007 Discussion re Starting/Frequ ency of Mammograms 2017 Colonoscopy 2022 Colorectal Cancer Screening 2022 Influenza Immunization (#1) 2023 SARS-COV-2 Immunization ( season) 2023 Respiratory Syncytial Virus (RSV) Immunization (Adult) (1 - 1-dose 75+ series) 2052 DTaP/Tdap/Td Immunization Discontinued 08/06/2022 TdaP Immunization Completed 08/06/2022 Meningococcal Immunization (ACWY) Aged Out No longer eligible based on patient's age to complete this topic Pneumococcal Immunization Combined Aged Out No longer eligible b ased on patient's age to complete this topic Rotavirus Immunization Aged Out No lo nger eligible based on patient's age to complete this topic Insurance MEDICAID [employer] Care Teams Multimedia Assistant Relationship Specialty Start Date End Date Radha Santiago PAC [address] [place] [address] PCP - General Physician Well Service Floor Worker 08/22/21 Tarik Leung MD [address] [place] [address] Consulting Physician Neurology 12/22/21
--- OUTSIDE RECORDS SUMMARY | 2024-05-06 17:18 | XMS_ITS | Clinical Summary ---
Author Organization [facility] Address [address] [place] [address] Care Team Providers Care Escalator Mechanic Name Role Phone Enrique Elizondo MD Primary Care Provider [phone] Enrique Elizondo MD Unavailable Source Comments [facility] and [facility] Practices is amultiple site organization consisting of ambulatory clinics and hospital sitesin [place], [place], [place] and [place]. This disclosure is being madepursuant to the Care Everywhere program and may not contain all information available regarding this patient. Last updated 17.[facility] Allergies Active Allergy Reactions Criticality Noted Date Comments Aspirin Diarrhea Medium 03/31/2019 Sulfamethazine GI Discomfort Medium 03/31/2019 Medications * Be aware that medications may not be up to date on this document. Alwaysverify current medications with the patient. Medication Sig Dispensed Refills Start Date End Date Status gabapentin (NEURONTIN) 300 MG capsule TK 1 C PO BID. AVOID DRIVING OR OPERATING MACHINES 05/20/2019 Active Active Problems No known active problems Social History Tobacco Use Types Packs/Day Years Used Date Smoking Tobacco: Never Smokeless Tobacco: Never Alcohol Use Standard Drinks/Week Comments Yes 0 (1 standard drink = 0.6 oz pur e alcohol) Sex and Gender Information Value Date Recorded Sex Assigned at Not on file Gender Identity Not on file Sexual Orientation Not on file Last Filed Vital Signs Vital Sign Reading Time Taken Comments Blood Pressure 141/83 03/31/2019 2:22 PM CRTT Pulse 90 03/31/2019 2:22 PM CRTT Temperature 36.7 C (98 F) 03/31/2019 2:22 PM CRTT Respiratory Rate - - Oxygen Saturation 96% 03/31/2019 2:22 PM CRTT Inhaled Oxygen Concentration - - Weight 77.1 kg (170 lb) 03/31/2019 2:22 PM CRTT Height 172.7 cm (5' 8 ) 03/31/2019 2:22 PM CRTT Body Mass Index 25.85 03/31/2019 2:22 PM CRTT Plan of Treatment Health Maintenance Due Date Last Done Comments COLOGUARD (AGES 45-75) - COL ON CA SCREENING 1977 COLON MONITORING 1977 COLONOSCOPY - COLON CA SCREENING 1977 CT COLONOGRAPHY - COLON CA SCREENING 1977 Colorectal Cancer Screening 1977 FIT - COLON CA SCREENING 1977 FLEX SIG - COLON CA SCREENING 1977 LIPID TESTING 1977 MAMMOGRAM 1977 PAP SMEAR 1977 HIV SCREENING 1992 HEPATITIS C SCREENING 11/14/1995 DTAP/TDAP/TD VACCINES (1 - Tdap) 1996 HEPATITIS B VACCINE (1 of 3 - 19+ 3-dose series) 1996 SCREENING FOR DIABETES 03/31/2019 COVID-19 VACCINE ( - 2023-2 5 season) 2023 INFLUENZA VACCINE (#1) 2023 DEPRESSION SCREENING 02/19/2024 ZOSTER VACCINE (1 of 2) 11/19/2027 HIB VACCINE Aged Out No longer eligi ble based on patient's age to complete this topic HPV VACCINE Aged Out No longer eligi ble based on patient's age to complete this topic MENINGOCOCCAL (Group B) VACC INE SHARED DECISION-MAKING Aged Out No longer eligibl e based on patient's age to complete this topic MENINGOCOCCAL GROUPS A/C/Y/W VACCINE Aged Out No longer eligible b ased on patient's age to complete this topic PNEUMOCOCCAL VACCINE Aged Out No long er eligible based on patient's age to complete this topic Goals Goal Patient Goal Type Associated Problems Recent Progress Patient-Stated? Author Mobility General No Charity Chapman RN Note: Expected end date: 06/29/2019 The goal is to maintain or improve your mobility at the optimum level for you. Interventions: Care Teams Escalator Mechanic Relationship Specialty Start Date End Date Enrique Elizondo MD PCP - General 03/31/19 Enrique Elizondo MD [address] [place] [id number] Family Medicine 03/31/19
--- OUTSIDE RECORDS SUMMARY | 2024-05-06 17:18 | XMS_ITS | Data Portability ---
Author Organization [facility] [place] Address [address] [place] [address] [place] [address] Care Team Providers Care Welder Operator Name Role Phone ZACKERY WHIPPLE Primary Care Provider Assessment No assessment recorded. Plan of Treatment Reminders Order Date Submit Date Provider Last Modified By Organization Details Last Modified Time Details Appointments MED CHECK 2024 08:30A M ADORE Masterson Not available Not available Not available Lab None recorded. Referral None recorded. Procedures None recorded. Surgeries None recorded. Imaging MAMMO, screening , digital, bilateral 2023 [facility], [address], [place], [address], 01/28/2024 04:01:09 Medication Orders estradiol 0.05 mg/24 hr semiweekl y transderm al patch 2024 025 [id number], [address], [place], [id number], 04/21/2024 14:31:13 estradiol 0.0375 mg/24 hr semiweekl y transderm al patch 2023 024 [id number] [address], [place], [id number], 01/21/2024 10:56:24 Patient TargetsNo targets recorded. Patient InstructionsNo instructions recorded. Reason for Referral None Reported. Problems Name Problem SNOMED Code Status Onset Date Resolution Date Notes Provider Name and Address Organization Details Recorded Time Mixed anxiety and depressive disorder 699418413 Active 2023 [facility] 10:[facility]:10 Asthma 050454017 Active 2023 [facility]al [facility] 10:58:20 Complex regional pain syndrome, type II, upper limb 106794564 Active 2023 Shahla Alcala [facility], [facility] 4 10:58:30 Neuropathy 813636843 Active [address] [facility] 4 10:58:39 Hypertensive disorder 62601018 Active [address] [facility] 4 10:58:52 Problem Notes None recorded. Procedures Surgical History Date Name Laterality Status Provider Name and Address Organization Details Recorded Time 02/18/19 06 Total Hysterectomy completed [facility] 01/21/2024 11:40:21 02/04/20 04 section completed [facility] 01/21/2024 11:40:08 01/19/20 04 Removal of ovary(s) completed ADORE Masterson [address], [place], [address], [facility] 01/21/2024 11:52:43 06/19/19 04 Ovarian Cystectomy completed [facility] 01/21/2024 11:41:13 Imaging Results None recorded. Procedure Notes None recorded. Medical Equipment None Reported. Allergies Allergen ID Allergen Name Allergen Category Reaction Reaction Severity Criticality Documentation Date Start Date Code Code System Note Provider Name and Address Organization Details Recorded Time 17276 Substance with sulfonami de structure and antibacte rial mechanism of action (substanc e) medicatio n Not available Not available Not available 01/21/2024 84183 8003 SNOMED [address] Al[address]a [facility] 4 10:55:28 Medications Name Sig Start Date Stop Date Status Note LastModified by Organization Details LastModified Time Vitamin C 500 mg tablet TAKE 1 TABLET BY MOUTH EVERY DAY active Not Available Not Available No t Available prednisone 20 mg tablet TAKE 2 TABLETS BY MOUTH DAILY FOR 5 DAYS FOR COUGH 01/20 completed Not Available Not Available Not Available hydroxyzine HCl 50 mg tablet TAKE 1 TABLET BY MOUTH TWICE DAILY NEEDED FOR ITCHING. DO NOT DRIVE WHILE TAKING THIS MEDICATIO N 01/20 completed Not Available Not Available Not Available omeprazole 20 mg capsule,del ayed release TAKE 1 CAPSULE BY MOUTH EVERY DAY active Not Available Not Available No t Available cephalexin 500 mg tablet TAKE 1 TABLET BY MOUTH EVERY 8 HOURS FOR 5 DAYS 01/20 completed Not Available Not Available Not Available epinephrine 0.3 mg/0.3 mL injection, auto-inject or INJECT 1 PEN IN THE MUSCLE ONE TIME DIRECTED active Not Available Not Available No t Available albuterol sulfate HFA 90 mcg/actuati on aerosol inhaler INHALE 2 PUFFS EVERY 4 HOURS NEEDED COUGH active Not Available Not Available No t Available estradiol 0.0375 mg/24 hr semiweekly transdermal patch APPLY 1 PATCH TOPICALLY TO THE SKIN 2 TIMES A WEEK active Not Available Not Available No t Available duloxetine 60 mg capsule,del ayed release TAKE ONE CAPSULE BY MOUTH TWICE DAILY active Not Available Not Available No t Available pregabalin 200 mg capsule TAKE 1 CAPSULE BY MOUTH TWICE DAILY active Not Available Not Available No t Available FeroSul 325 mg (65 mg iron) tablet TAKE 1 TABLET BY MOUTH EVERY DAY active Not Available Not Available No t Available Lyllana 0.05 mg/24 hr transdermal patch APPLY 1 PATCH TOPICALLY TO THE SKIN 2 TIMES A WEEK active Not Available Not Available No t Available Vitals Date Recorded Body height Body mass index (BMI) Body weight Systolic blood pressure Diastolic blood pressure Provider Name and Address Organization Details Last Updated DateTime 01/21/2024 172.72 cm 37.3 kg/m2 764138.1 3 g 134 mm[Hg] 82 mm[Hg] Shahla Alcala [facility] 4 10:55:19 Date Recorded Body height Systolic blood pressure Diastolic blood pressure Provider Name and Address Organization Details Last Updated DateTime 04/21/2024 172.72 cm 139 mm[Hg] 82 mm[Hg] Xin Segovia [facility] 04/21/2024 14:20:52 Social History Question Answer Notes LastModified by Organizat ion Details LastModified Time Tobacco Smoking Status Former Smoker Shahla le, [facility] 01/21/2024 11:38:47 What Is Your Level Of Alcohol Consumption? None Information not available 01/21/2024 Are You Blind Or Do You Have Difficulty Seeing? No Information n ot available 01/21/2024 What Is Your Level Of Caffeine Consumption? Moderate [email or web address] Information not available 01/21/2024 In The 14 Days Before Symptom Onset, Have You Had Close Contact With A Laboratory-confirm ed COVID-19 While That Case Was Ill? No [email or web address] Information n ot available 01/21/2024 In The 14 Days Before Symptom Onset, Have You Had Close Contact With A Person Who Is Under Investigation For COVID-19 While That Person Was Ill? No [email or web address] Information not available 01/21/2024 Have You Been To An Area Known To Be High Risk For COVID-19? No [email or web address] Information not available 01/21/2024 Are You Deaf Or Do You Have Serious Difficulty Hearing? No [email or web address] Information not available 01/21/2024 What Type Of Diet Are You Following? REGULAR [email or web address] Information n ot available 01/21/2024 Do You Use Your Seat Belt Or Car Seat Routinely? Yes [email or web address] Information not available 01/21/2024 Do You Have Smoke And Carbon Monoxide Detectors In Your Home? Yes [email or web address] Information not available 01/21/2024 How Much Tobacco Do You Smoke? No Information not available 04/21/2024 Do You Feel Stressed (tense, Restless, Nervous, Or Anxious, Or Unable To Sleep At Night)? HV24468-0 [email or web address] Information not available 01/21/2024 Do You Use Any Illicit Or Recreational Drugs? No [email or web address] Information not available 01/21/2024 Do You Use Sunscreen Routinely? Yes [email or web address] Information not available 01/21/2024 Has Tobacco Cessation Counseling Been Provided? Yes [email or web address] Information not available 01/21/2024 On What Date Was Tobacco Cessation Counseling Provided? 01/21/2024 [email or web address] Information not available 01/21/2024 Do You Or Have You Ever Used Any Other Forms Of Tobacco Or Nicotine? No [email or web address] Information not available 01/21/2024 Sex: Unknown Functional Status Question Answer Note LastModified by Organizat ion Details LastModified Time Do you have difficulty walking or climbing stairs? No [email or web address] Information not available 01/21/2024 Are you able to walk? YESWOREST [email or web address] Information not available 01/21/2024 Are you able to care for yourself? Yes Information not available 01/21/2024 Do you have difficulty dressing or bathing? No [email or web address] Information not available 01/21/2024 What is your exercise level? Occasional Information not available 01/21/2024 Mental Status None recorded. Family History Relationship Description Onset Age of this Age Resolved Age Notes LastModified by Organization Details LastModified Time Mother Asthma [email or web address] Not available 01/21/2024 11:37:27 Mother Heart disease Not available 01/20 11:37:36 Mother Hypercholest erolemia [email or web address] Not available 01/20 11:37:44 Mother Hypertensive disorder [email or web address] Not available 01/20 11:37:53 Medical History Condition Response Allergies (Food, seasonal, environmental ) Y Other Y Breast Cancer N Drug/Latex Allergies/Reactions N Blood Transfusion N Dermatologic Disorders N Lung Disease N Defects or Inherited Disease N Breast Problem N Gestational Diabetes N Hematologic disorders N Anesthesia Complications N History of STI N Deep Vein Thrombosis N Polycystic ovary syndrome Y Anxiety Disorder Y Autoimmune disease N Arthritis N Infertility N Polyps N Acid Reflux (GERD) N History of abnormal pap N Cancer N Stroke N Varicosities N Neurologic/Epilepsy Y Endometriosis N High Cholesterol Y Headaches N Fibromyalgia N Kidney Disease N Heart Problems N Kidney or Bladder Problems N Thyroid Problems N GI Problems N Eating Disorder N Anemia N Art (IVF or FET) N Psychiatric Illness N Ovarian Cancer N Diabetes N Pulmonary (TB, Asthma) N Hepatitis/Liver Disease N No Past Medical History N Eczema N Urinary Tract Infection N Abuse/Domestic Violence N Asthma Y Trauma/Violence N Depression/ depression Y Heart Disease N Pre-Eclampsia N Hypertension Y Osteoporosis N Thrombophilias N Gynecological History Statement/Question Response Abnormal Pap N Date of Last Colonoscopy Date of Last Mammogram Date of LMP 02/18/2005 STIs/STDs N Date of DEXA bone scan Date of Last Pap Smear Current Control Method Hysterectom y LMP Approximate Obstetrics History GPAL:G 5 P 3 0 2 3 Type Value Full Term 3 Spontaneous 2 Living 3 Total 5 Past Encounters Encounter ID Performer Location Encounter Start Date Encounter Closed Date Diagnosis/Indication Diagnosis SNOMED-CT Code Diagnosis ICD10 Code Diagnosis Note [id number] ADORE Masterson [place] [address] [address] 01/21/2024 09:41:57 01/21/2024 12:10:26 Menopausal flushing 711722721 N95.1 Discussed all management options (lifestyle modificati ons, ERT, non-hormon al options)sh e would like to start estradiol transderma l patchesr/b /a reviewed and accepted by [facility] iker order given, encouraged to scheduleRT C for med check in 3-4 months Time spent in visit is a total of 35 mins with at least 50% of visit consisting of counseling and review of plan of care. Screening for malignant neoplasm of breast 144634037 Z12.39 Night sweats 56843297 R6 1 [id number] ADORE Masterson [place] [address] [address] 04/21/2024 14:12:22 04/21/2024 15:32:39 Hormone replacement therapy 355988822 Z79.890 symptoms have improved, however still experienci ng VMSwe discussed option of increasing dose vs continuing with current therapy vs non hormonal optionsdes ires to increase dose, rx sent, r/b/a reviewedRT C for med check in 3 months Time spent in visit is a total of 18 mins with at least 50% of visit consisting of counseling and review of plan of care. Health Concerns Section Related Observation LastModified by Organization Willy shahid LastModified Time None Recorded Concern Status LastModified by Organization Details LastModified Time None Recorded Advance Directives Directive None Recorded Payers Encounter Date Sequence Insurance Name Policy Number Policy Moyer Covered Member ID Moyer Member ID Guarantor Name 01/21/2024 1 [facility] ON OR AFTER 08/18/20 (MEDICAID REPLACEMENT - HMO) Kelle Cheema [id number] Kelle Cheema 04/21/2024 1 [facility] ON OR AFTER 08/18/20 (MEDICAID REPLACEMENT - HMO) Kelle Cheema [id number] Kelle Cheema Notes Date Note Type Note Provider Name and Address Organization Details Recorded Time 01/21/2024 text/html 48yopresents to discuss hot flashes/night sweats/trouble sleepingsymptoms started 6 months agoconstant hot flashes, unable to sleep, effecting quality of life h/o hyst in 2005 for AUB, non-cancerous indicationsone ovary remains (one ovary removed in 2003 w/ benign ovarian cyst per pt)no h/o abnormal papsroutine labs UTD/PCP she has never had a mammogram ADORE Masterson [address], [place], [address], [facility] 01/21/2024 11:57:33 04/21/2024 text/html 48yopresents for med checkstarted estradiol transdermal patches for VMSsymptoms have improved, still experiencing hot flashes but have improved by about 50-75%no neg SE h/o hyst in 2005 for AUB, non-cancerous indicationsone ovary remains (one ovary removed in 2003 w/ benign ovarian cyst per pt)no h/o abnormal papsroutine labs UTD/PCP ADORE Masterson [address], [place], [address], [facility] 04/21/2024 15:32:07 OBGyn Episode Ob Episode Information Episode Created Date Number of Fetuses Patient Bloodtype Patient rh Status Prepregnancy Weight lbs Domestic Partner Domestic Partner Phone Father Name Shore Man Status 01/21/20 24 1 CLOSED Fetus Data First Name Last Name Admitted to NICU Weight (g) Sex Living Outcome Pediatric Complications Fetus ID Race Codes Race Delivery Type 3713.55 7704 M Full Term [id number] Vaginal Delivery Carlton Calculation Initial Carlton Date Initial Exam Date Initial Exam Provider Initial Ultrasound Date Last Menstrual Period Date Ultra Sound Weeks Gestation 0 Eighteen To Twenty Week Carlton Update Ultra Sound Date Fundal Height At Umbil Quickening Date Ultra Sound Latest Weeks Gestation Final Carlton Confirmed By Final Carlton Confirmed Date Final Carlton Date Ultra Sound Latest Days Gestation 0 0 Menstrual History Last Menstrual Date Menses Monthly On Bcp Conception Prior Menses Frequency Hcg Plus Date Menarche Onset Age Delivery Information Delivery Date Delivery Type Labor Anesthesia Weeks Gestation Incision Type Labor Labor Length Hrs Delivered By Post Complications Tubal Sterilization Discharge Date Comments 2 37 Discharge Information Feeding Method Contraceptive Method Maternal HG B and HCT Levels Ob Episode Information Episode Created Date Number of Fetuses Patient Bloodtype Patient rh Status Prepregnancy Weight lbs Domestic Partner Domestic Partner Phone Father Name Shore Man Status 01/21/20 24 1 CLOSED Fetus Data First Name Last Name Admitted to NICU Weight (g) Sex Living Outcome Pediatric Complications Fetus ID Race Codes Race Delivery Type 3486.76 1704 M Full Term [id number] Vaginal Delivery Carlton Calculation Initial Carlton Date Initial Exam Date Initial Exam Provider Initial Ultrasound Date Last Menstrual Period Date Ultra Sound Weeks Gestation 0 Eighteen To Twenty Week Carlton Update Ultra Sound Date Fundal Height At Umbil Quickening Date Ultra Sound Latest Weeks Gestation Final Carlton Confirmed By Final Carlton Confirmed Date Final [place]ton Date Ultra Sound Latest Days Gestation 0 0 Menstrual History Last Menstrual Date Menses Monthly On Bcp Conception Prior Menses Frequency Hcg Plus Date Menarche Onset Age Delivery Information Delivery Date Delivery Type Labor Anesthesia Weeks Gestation Incision Type Labor Labor Length Hrs Delivered By Post Complications Tubal Sterilization Discharge Date Comments 0 37 Discharge Information Feeding Method Contraceptive Method Maternal HG B and HCT Levels Ob Episode Information Episode Created Date Number of Fetuses Patient Bloodtype Patient rh Status Prepregnancy Weight lbs Domestic Partner Domestic Partner Phone Father Name Shore Man Status 01/21/20 24 1 CLOSED Fetus Data First Name Last Name Admitted to NICU Weight (g) Sex Living Outcome Pediatric Complications Fetus ID Race Codes Race Delivery Type 3713.55 7704 F Full Term [id number] Primary Carlton Calculation Initial Carlton Date Initial Exam Date Initial Exam Provider Initial Ultrasound Date Last Menstrual Period Date Ultra Sound Weeks Gestation 0 Eighteen To Twenty Week Carlton Update Ultra Sound Date Fundal Height At Umbil Quickening Date Ultra Sound Latest Weeks Gestation Final Carlton Confirmed By Final Carlton Confirmed Date Final Carlton Date Ultra Sound Latest Days Gestation 0 0 Menstrual History Last Menstrual Date Menses Monthly On Bcp Conception Prior Menses Frequency Hcg Plus Date Menarche Onset Age Delivery Information Delivery Date Delivery Type Labor Anesthesia Weeks Gestation Incision Type Labor Labor Length Hrs Delivered By Post Complications Tubal Sterilization Discharge Date Comments 4 37 Discharge Information Feeding Method Contraceptive Method Maternal HG B and HCT Levels Ob Episode Information Episode Created Date Number of Fetuses Patient Bloodtype Patient rh Status Prepregnancy Weight lbs Domestic Partner Domestic Partner Phone Father Name Shore Man Status 01/21/20 24 1 CLOSED Fetus Data First Name Last Name Admitted to NICU Weight (g) Sex Living Outcome Pediatric Complications Fetus ID Race Codes Race Delivery Type , [place] [id number] Carlton Calculation Initial Carlton Date Initial Exam Date Initial Exam Provider Initial Ultrasound Date Last Menstrual Period Date Ultra Sound Weeks Gestation 0 Eighteen To Twenty Week Carlton Update Ultra Sound Date Fundal Height At Umbil Quickening Date Ultra Sound Latest Weeks Gestation Final [place]ton Confirmed By Final Carlton Confirmed Date Final Carlton Date Ultra Sound Latest Days Gestation 0 0 Menstrual History Last Menstrual Date Menses Monthly On Bcp Conception Prior Menses Frequency Hcg Plus Date Menarche Onset Age Delivery Information Delivery Date Delivery Type Labor Anesthesia Weeks Gestation Incision Type Labor Labor Length Hrs Delivered By Post Complications Tubal Sterilization Discharge Date Comments 9 Discharge Information Feeding Method Contraceptive Method Maternal HG B and HCT Levels Ob Episode Information Episode Created Date Number of Fetuses Patient Bloodtype Patient rh Status Prepregnancy Weight lbs Domestic Partner Domestic Partner Phone Father Name Shore Man Status 01/21/20 24 1 CLOSED Fetus Data First Name Last Name Admitted to NICU Weight (g) Sex Living Outcome Pediatric Complications Fetus ID Race Codes Race Delivery Type , [place] [id number] Carlton Calculation Initial Carlton Date Initial Exam Date Initial Exam Provider Initial Ultrasound Date Last Menstrual Period Date Ultra Sound Weeks Gestation 0 Eighteen To Twenty Week Carlton Update Ultra Sound Date Fundal Height At Umbil Quickening Date Ultra Sound Latest Weeks Gestation Final [place] Confirmed By Final [place] Confirmed Date Final [place]ton Date Ultra Sound Latest Days Gestation 0 0 Menstrual History Last Menstrual Date Menses Monthly On Bcp Conception Prior Menses Frequency Hcg Plus Date Menarche Onset Age Delivery Information Delivery Date Delivery Type Labor Anesthesia Weeks Gestation Incision Type Labor Labor Length Hrs Delivered By Post Complications Tubal Sterilization Discharge Date Comments 1 Discharge Information Feeding Method Contraceptive Method Maternal HG B and HCT Levels
--- OUTSIDE RECORDS SUMMARY | 2024-05-06 17:18 | XMS_ITS | Data Portability ---
Author Organization [facility], Main Office Address [address] [place] [address] Assessment Encounter Date Assessment Date Assessment LastModified by Organization Details LastModified Time 06/20/2023 06/20/2023 Assessment: Severe OSAHS, AHI = 33 PLMD Plan: The following were reviewed and explained to the patient: primary care/referral note [facility] diagnostic sleep study 06/05/23 sleep onset = 46.5 minutes, REM onset = 228 minutes, AHI = 33, supine AHI = 48, PLMI = 37 Elevation in periodic limb movement index may be contributed by duloxetine. Non-pharmacologic therapy options for periodic limb movement disorder include avoidance of aggravating drugs and substances, mental alerting activities, short daily hemodialysis for patients in renal failure, exercise, leg massage, stretching calf muscles, use of a weighted blanket and applied heat. We will check BUN, Creatinine, Vitamin E, Vitamin B12, RBC folate, Iron, TIBC, Ferritin, ESR, Magnesium, Hgb and Hct levels. General information on sleep disordered breathing, evaluation of sleep disordered breathing, treatment with PAP therapy, and living with PAP therapy were covered. PSG is medically necessary to determine the management of sleep apnea. We discussed with the patient the impact of weight on: Sleep disordered breathing Hypertension Hyperlipidemia We discussed with the patient the benefit of PAP therapy on: Sleep disordered breathing Hypertension Educated the patient on sleep hygiene measures. Relaxing rituals to rest easy, understanding foods with positive and negative impact on sleep, creating a peaceful sleep environment, timing of exercise, using herbal sleep aids, and practicing sleep-friendly meditation were covered. To determine how much sleep is needed, the patient will assess where she falls on the spectrum, examine what lifestyle factor such as stress is affecting the quality and quantity of sleep. In general, adults need 7-9 hours of sleep. Educated the patient regarding foods that promote sleep. These include but are not limited to cherries, bananas, toast, oatmeal, and warm milk. Educated the patient regarding foods and drinks to avoid before bedtime. These include but are not limited to aged cheese, chocolate, spicy foods, tomato-based sauces, soy, ginseng tea and processed meat. Advocated influenza vaccination annually and pneumonia vaccination in 2042. Advocated weight loss through diet and exercise. Patient's ideal body weight according to height and gender is up to 150 lbs. Encouraged patient to adjust caloric intake to maintain/achieve ideal body weight, emphasizing on fruits, vegetables, whole grains, and fat-free or low-fat products. These include lean meats, poultry, fish, beans, eggs, and nuts and foods that are low in saturated fats, trans-fats, cholesterol, salt (sodium), and glycemic index. Stressed the importance of regular exercise up to the patient's capacity limits. In this case, we recommend 20 min daily walking, 2 days a week of resistance training. Patient to monitor BP daily and bring records to PCP for further management. Follow-up: 3 weeks [email or web address] Not available 06/20/2023 12:06:16 07/11/2023 07/11/2023 Assessment: Severe OSAHS, AHI = 33 Iron deficiency B12 deficiency Plan: The following were reviewed and explained to the patient: [facility] diagnostic sleep study 06/05/23 sleep onset = 46.5 minutes, REM onset = 228 minutes, AHI = 33, supine AHI = 48, PLMI = 37 [facility] titration sleep study 07/01/23 sleep onset = 27.5 minutes, REM onset = none, [employer] extra small/small Brevida nasal pillows @ 12 cmH2O, PLMI = 84 Ferritin 06/24/23 11 ng/mL B12 06/24/23 315 pg/mL Elevation in periodic limb movement index may be contributed by duloxetine. Non-pharmacologic therapy options for periodic limb movement disorder include avoidance of aggravating drugs and substances, mental alerting activities, short daily hemodialysis for patients in renal failure, exercise, leg massage, stretching calf muscles, use of a weighted blanket and applied heat. BUN, Creatinine, Vitamin E, RBC folate, Iron, TIBC, ESR, Magnesium, Hgb and Hct levels are within normal limits. Patient will take FeSO4 325 mg + Vit C 500 mg daily to keep the ferritin > 75 ng/ml. Patient will take B12 1 mg daily to keep the levels > 400 pg/ml. Check ferritin and B12 one week before return. We will hold off on dopaminergic therapy for now. General information on sleep disordered breathing, evaluation of sleep disordered breathing, treatment with PAP therapy, and living with PAP therapy were covered. Educated the patient on problems and solutions associated with positive airway pressure (PAP) use. Difficulty tolerating pressure, mask leaks, intolerance of interface, nasal congestion, claustrophobic response, dry mouth, and unintentional mask removal during sleep were covered. Dry mouth is a normal occurrence for people who just start out on PAP therapy because they are not used to air blowing in to the throat to hold open. Dry mouth is exacerbated for people who wear nasal PAP mask and whose jaw drops open during sleep. Not only does this create a much less efficient therapy because of leakage, it also causes dry mouth. There are a couple solutions to help prevent this type of problem. A simple solution would be to wear a chinstrap which essentially holds the jaw in place. A second solution would be a switch to a full face mask which covers both the nose and mouth. Although this is another easy solution, using a full face mask for some could seem claustrophobic or confining. There is no silver bullet solution as no single mask is right for everybody. Sometimes it takes a bit of experimentation to find a PAP mask which best meets the patient's needs as well as fits comfortably. Another tactic is to use a humidifier on your PAP machine. Most new PAP machines have integrated humidifiers. Humidification is stephen when dealing with symptoms of dry mouth because the humidifier can supply both warm and room temperate air. Even a small amount of humidity in the airflow will help nasal passages to stay hydrated. If a person is using both a full face mask and a PAP machine with a heated humidifier and is still experiencing dry mouth, an ill-fitted PAP mask might be causing the problem. Leakage can be caused by a mask that is to large or small, the wrong style mask, the cushion is degraded or simply because the mask's straps aren't adjusted correctly. If leakage occurs, dry air from the room can leak in while humidification escapes. The result is reduced humidification within the circuit and resulting in dry throat and mouth. Finally, beyond factors involving the PAP machine and mask, dry mouth can also be caused or worsened by dehydration. The general recommendation to during eight 8 oz. glasses of water a day might be too little for many people. When people drink large amounts of coffee or other caffeine beverages, or sweat a lot during the day, making sure to rehydrate is an important part of PAP therapy. [employer] Air Sense 11 auto set unit with heated humidifier, supplies and [employer] extra small/small Brevida nasal pillows @ 12 cmH2O ordered. Further titration will be based on clinical response. Provided the patient with a list of local home care stores where positive airway pressure (PAP) units, accoutrement, and services are available. Home care store selection is based on patient's insurance carrier. Patient will setup an appointment with [facility] for supplies and pressure adjustments. A major predictor of success with use of PAP is follow-up with both the respiratory supplier and the treating physician. The respiratory supplier optimally will follow-up within two weeks after starting use while the treating physician optimally will follow-up within 90 days after starting therapy to assess adherence and effectiveness of treatment. The download results can show the treating physician information about adherence to treatment, residual AHI while on treatment and presence of large mask leakage. This information is especially helpful if the patient has residual sleepiness despite treatment. We discussed with the patient the impact of weight on: Sleep disordered breathing Hypertension Hyperlipidemia We discussed with the patient the benefit of PAP therapy on: Sleep disordered breathing Hypertension Educated the patient on sleep hygiene measures. Relaxing rituals to rest easy, understanding foods with positive and negative impact on sleep, creating a peaceful sleep environment, timing of exercise, using herbal sleep aids, and practicing sleep-friendly meditation were covered. To determine how much sleep is needed, the patient will assess where she falls on the spectrum, examine what lifestyle factor such as stress is affecting the quality and quantity of sleep. In general, adults need 7-9 hours of sleep. Educated the patient regarding foods that promote sleep. These include but are not limited to cherries, bananas, toast, oatmeal, and warm milk. Educated the patient regarding foods and drinks to avoid before bedtime. These include but are not limited to aged cheese, chocolate, spicy foods, tomato-based sauces, soy, ginseng tea and processed meat. Advocated influenza vaccination annually and pneumonia vaccination in 2042. Advocated weight loss through diet and exercise. Patient's ideal body weight according to height and gender is up to 150 lbs. Encouraged patient to adjust caloric intake to maintain/achieve ideal body weight, emphasizing on fruits, vegetables, whole grains, and fat-free or low-fat products. These include lean meats, poultry, fish, beans, eggs, and nuts and foods that are low in saturated fats, trans-fats, cholesterol, salt (sodium), and glycemic index. Stressed the importance of regular exercise up to the patient's capacity limits. In this case, we recommend 20 min daily walking, 2 days a week of resistance training. Patient to monitor BP daily and bring records to PCP for further management. Follow-up: 3 months, September 2023 Not available 07/11/2023 11:16:03 11/07/2023 11/07/2023 Assessment: Severe OSAHS, AHI = 33 Iron deficiency B12 deficiency Plan: The following were reviewed and explained to the patient: [facility] diagnostic sleep study 06/05/23 sleep onset = 46.5 minutes, REM onset = 228 minutes, AHI = 33, supine AHI = 48, PLMI = 37 [facility] titration sleep study 07/01/23 sleep onset = 27.5 minutes, REM onset = none, [employer] extra small/small Brevida nasal pillows @ 12 cmH2O, PLMI = 84 Ferritin 06/24/23 11 ng/mL B12 06/24/23 315 pg/mL PAP compliance downloaded and interpreted x 20 minutes. Data reviewed and explained to the patient. Average apnea/hypopnea index (AHI) is 1.5. Patient used PAP > 4 hours 97% of the time. PAP is set at 12 cmH2O. PAP will remain at 12 cmH2O. Oxygen supplementation: none Keep ramp start at 5 cmH2O. Keep ramp duration at 20 minutes. Keep EPR +2 multimedia teacher. Keep humidifier level on automatic mode. Keep tube temperature on automatic mode. Patient is benefiting from PAP therapy. Encouraged patient to maintain PAP use more than 70% of the time. Statement of PAP use and benefits will be sent to the home care store. Elevation in periodic limb movement index may be contributed by duloxetine. Non-pharmacologic therapy options for periodic limb movement disorder include avoidance of aggravating drugs and substances, mental alerting activities, short daily hemodialysis for patients in renal failure, exercise, leg massage, stretching calf muscles, use of a weighted blanket and applied heat. BUN, Creatinine, Vitamin E, RBC folate, Iron, TIBC, ESR, Magnesium, Hgb and Hct levels are within normal limits. Patient will continue FeSO4 325 mg + Vit C 500 mg daily to keep the ferritin > 75 ng/ml. Patient will continue B12 1 mg daily to keep the levels > 400 pg/ml. Check ferritin and B12 one week before return. We will hold off on dopaminergic therapy for now. General information on sleep disordered breathing, evaluation of sleep disordered breathing, treatment with PAP therapy, and living with PAP therapy were covered. Educated the patient on problems and solutions associated with positive airway pressure (PAP) use. Difficulty tolerating pressure, mask leaks, intolerance of interface, nasal congestion, claustrophobic response, dry mouth, and unintentional mask removal during sleep were covered. Dry mouth is a normal occurrence for people who just start out on PAP therapy because they are not used to air blowing in to the throat to hold open. Dry mouth is exacerbated for people who wear nasal PAP mask and whose jaw drops open during sleep. Not only does this create a much less efficient therapy because of leakage, it also causes dry mouth. There are a couple solutions to help prevent this type of problem. A simple solution would be to wear a chinstrap which essentially holds the jaw in place. A second solution would be a switch to a full face mask which covers both the nose and mouth. Although this is another easy solution, using a full face mask for some could seem claustrophobic or confining. There is no silver bullet solution as no single mask is right for everybody. Sometimes it takes a bit of experimentation to find a PAP mask which best meets the patient's needs as well as fits comfortably. Another tactic is to use a humidifier on your PAP machine. Most new PAP machines have integrated humidifiers. Humidification is stephen when dealing with symptoms of dry mouth because the humidifier can supply both warm and room temperate air. Even a small amount of humidity in the airflow will help nasal passages to stay hydrated. If a person is using both a full face mask and a PAP machine with a heated humidifier and is still experiencing dry mouth, an ill-fitted PAP mask might be causing the problem. Leakage can be caused by a mask that is to large or small, the wrong style mask, the cushion is degraded or simply because the mask's straps aren't adjusted correctly. If leakage occurs, dry air from the room can leak in while humidification escapes. The result is reduced humidification within the circuit and resulting in dry throat and mouth. Finally, beyond factors involving the PAP machine and mask, dry mouth can also be caused or worsened by dehydration. The general recommendation to during eight 8 oz. glasses of water a day might be too little for many people. When people drink large amounts of coffee or other caffeine beverages, or sweat a lot during the day, making sure to rehydrate is an important part of PAP therapy. Provided the patient with a list of local home care stores where positive airway pressure (PAP) units, accoutrement, and services are available. Home care store selection is based on patient's insurance carrier. Patient will setup an appointment with [facility] for supplies and pressure adjustments. A major predictor of success with use of PAP is follow-up with both the respiratory supplier and the treating physician. The download results can show the treating physician information about adherence to treatment, residual AHI while on treatment and presence of large mask leakage. This information is especially helpful if the patient has residual sleepiness despite treatment. We discussed with the patient the impact of weight on: Sleep disordered breathing Hypertension Hyperlipidemia We discussed with the patient the benefit of PAP therapy on: Sleep disordered breathing Hypertension Educated the patient on sleep hygiene measures. Relaxing rituals to rest easy, understanding foods with positive and negative impact on sleep, creating a peaceful sleep environment, timing of exercise, using herbal sleep aids, and practicing sleep-friendly meditation were covered. To determine how much sleep is needed, the patient will assess where she falls on the spectrum, examine what lifestyle factor such as stress is affecting the quality and quantity of sleep. In general, adults need 7-9 hours of sleep. Educated the patient regarding foods that promote sleep. These include but are not limited to cherries, bananas, toast, oatmeal, and warm milk. Educated the patient regarding foods and drinks to avoid before bedtime. These include but are not limited to aged cheese, chocolate, spicy foods, tomato-based sauces, soy, ginseng tea and processed meat. Advocated influenza vaccination annually and pneumonia vaccination in 2042. Advocated weight loss through diet and exercise. Patient's ideal body weight according to height and gender is up to 150 lbs. Encouraged patient to adjust caloric intake to maintain/achieve ideal body weight, emphasizing on fruits, vegetables, whole grains, and fat-free or low-fat products. These include lean meats, poultry, fish, beans, eggs, and nuts and foods that are low in saturated fats, trans-fats, cholesterol, salt (sodium), and glycemic index. Stressed the importance of regular exercise up to the patient's capacity limits. In this case, we recommend 20 min daily walking, 2 days a week of resistance training. Patient to monitor BP daily and bring records to PCP for further management. Follow-up: 6 months, April 2024 Not available 11/10/2023 12:59:44 Plan of Treatment Reminders Order Date Submit Date Provider Last Modified By Organization Details Last Modified Time Details Appointments None recorded. Lab vitamin B12, serum 2023 025 [facility] (Lab), [address] [place], [address], 5 09:14:12 ferritin, serum or plasma 2023 025 [facility] (Lab), [address] [place], [address], 5 09:14:12 vitamin B12, serum 2023 024 [facility] (Lab), [address] [place], [address], 4 07:37:52 ferritin, serum or plasma 2023 024 [facility] (Lab), [address] [place], [address], 4 07:37:52 iron + TIBC + ferritin, serum 2023 024 [facility] (Lab), [address] [place], [address], 4 14:36:32 folate, RBC 2023 024 [facility] (Lab), [address] [place], [address], 4 14:36:33 vitamin B12, serum 2023 024 [facility] (Lab), [address] [place], [address], 4 14:36:35 ESR (erythrocy te sedimentat ion rate), blood 2023 024 [facility] (Lab), [address] [place], [address], 4 14:36:34 hemoglobin + hematocrit , blood 2023 024 [facility] (Lab), [address] [place], [address], 4 14:36:34 bun (blood urea nitrogen), serum or plasma 20[email or web address] [place] [address] (Lab), [address] [place], [address], 4 14:19:33 creatinine , serum or plasma [email or web address] [place] [address] (Lab), [address] [place], [address], 4 14:19:33 magnesium, serum or plasma 2023 024 [facility] (Lab), [address] [place], [address], 4 14:36:35 vitamin E, serum 2023 024 [facility] (Lab), [address] [place], [address], 4 14:36:34 Referral None recorded. Procedures None recorded. Surgeries None recorded. Imaging polysomnog iker, titration study - no auth required 2023 024 [email or web address] 5 [facility], [address] [place], [address], 4 09:06:26 Medication Orders cyanocobal [place] (vit B-12) 1,000 mcg tablet 2023 024 [place] [id number], [address] [facility], [place], [place], [id number], 4 12:18:01 Vitamin C 500 mg tablet 2023 024 [place] [facility][id number], [address] [facility] [address], [place], [place], [id number], 4 12:18:00 ferrous sulfate 325 mg (65 mg iron) tablet 2023 024 [place] [facility] #[id number], [address] [facility], [place], [place], [id number], 4 12:18:05 cyanocobal [place] (vit B-12) 1,000 mcg tablet 2023 024 [place] [facility][id number], [address] [facility], [place], [place], [id number], 4 11:16:12 Vitamin C 500 mg tablet 2023 024 [place] [id number], [address] [facility], [place], [place], [id number], 4 11:16:15 ferrous sulfate 325 mg (65 mg iron) tablet 2023 024 [place] [id number], [address] [facility], [place], [place], [id number], 11:16:12 Patient TargetsNo targets recorded. Patient InstructionsNo instructions recorded. Reason for Referral None Reported. Results Created Date Observation Date Name Description Value Unit Range Abnormal Flag Note LastModifiedBy Organization Detail LastModifiedTime 06/24/19 24 06/25/2023 FE+TI BC+FE R iron bind.cap.(TI BC) 299 ug/dL 250-45 0 Not Available [facility] ([facility]) [address] [place], [address], 06/28/2023 14:36:32 06/24/19 24 06/25/2023 FE+TI BC+FE R UIBC 265 ug/dL 131-42 5 Not Available [facility] ([facility]) [address] [place], [address], 06/28/2023 14:36:32 06/24/19 24 06/25/2023 FE+TI BC+FE R iron 34 ug/dL 27-159 Not Available [facility] ([facility]) [address] [place], [address], 06/28/2023 14:36:32 06/24/19 24 06/25/2023 FE+TI BC+FE R iron saturation 11 % 15-55 below low normal Not Available [facility] ([facility]) [address] [place], [address], 06/28/2023 14:36:32 06/24/19 24 06/25/2023 FE+TI BC+FE R ferritin 35 NG/mL 15-150 Not Available [facility] ([facility]) [address] [place], [address], 06/28/2023 14:36:32 06/24/19 24 06/25/2023 BUN+C REAT BUN 13 mg/dL 6-24 Not Available [facility] ([facility]) [address] [place], [address], 06/28/2023 14:36:33 06/24/19 24 06/25/2023 BUN+C REAT creatinine 0.87 mg/dL 0.57-1 .00 Not Available [facility] ([facility]) [address] [facility] [place], [address], 06/28/2023 14:36:33 06/24/19 24 06/25/2023 BUN+C REAT eGFR 84 mL/mi n/1.7 3 >59 Not Available [facility] ([facility]) [address] [facility] [place], [address], 06/28/2023 14:36:33 06/24/19 24 06/25/2023 BUN+C REAT BUN/creatini ne ratio 15 9-23 Not Available [facility] ([facility]) [address] [facility] [place], [address], 06/28/2023 14:36:33 06/24/19 24 06/25/2023 FOLAT E, RBC folate, hemolysate 520.0 NG/mL not estab. Not Available [facility] ([facility]) [address] [facility] [place], [address], 06/28/2023 14:36:33 06/24/19 24 06/25/2023 FOLAT E, RBC hematocrit 38.9 % 34.0-4 6.6 Not Available [facility] ([facility]) [address] [facility] [place], [address], 06/28/2023 14:36:33 06/24/19 24 06/25/2023 FOLAT E, RBC folate, RBC 1337 NG/mL >498 Not Available [facility] ([facility]) [address] [facility] [place], [address], 06/28/2023 14:36:33 06/24/19 24 06/25/2023 HGB+H CT hemoglobin 12.2 g/dL 11.1-1 5.9 Not Available [facility] ([facility]) [address] [place], [address], 06/28/2023 14:36:34 06/24/19 24 06/28/2023 VITAM IN E vitamin E(alpha tocopherol) 12.8 mg/L 7.0-25 .1 Not Available [facility] ([facility]) [address] [facility], [place], [address], 06/28/2023 14:36:34 06/24/19 24 06/28/2023 VITAM IN E vitamin E(gamma tocopherol) 2.6 mg/L 0.5-5. 5 Refer ence inter vals for alpha and gamma -toco phero l deter mined from [facility] Nutri tion Exami natio n Surve y, 2004- 2005. Indiv idual s with alpha -toco phero l level s less than 5.0 mg/L are consi dered vitam in E defic ient. Not Available [facility] ([facility]) [address] [facility], [place], [address], 06/28/2023 14:36:34 06/24/19 24 06/25/2023 SEDIM ENTAT ION RATE- WESTE RGREN sedimentatio n rate-westerg sanchez 21 mm/HR 0-32 Not Available [facility] ([facility]) [address] [facility], [place], [address], 06/28/2023 14:36:34 06/24/19 24 06/26/2023 VITAM IN B12 vitamin B12 315 pg/mL 232-12 45 Not Available [facility] ([facility]) [address] [facility], [place], [address], 06/28/2023 14:36:35 06/24/19 24 06/25/2023 MAGNE SIUM magnesium 2.1 mg/dL 1.6-2. 3 Not Available [facility] ([facility]) [address] [facility] [place], [address], 06/28/2023 14:36:35 11/13/19 24 11/14/2023 VITAM IN B12 vitamin B12 483 pg/mL 232-12 45 normal Not Available [facility] ([facility]) [address] [facility], [place], [address], 11/14/2023 07:37:52 11/13/19 24 11/14/2023 DIANNE TIN ferritin 45 NG/mL 15-150 normal Not Available [facility] ([facility]) [address] [facility], [place], [address], 11/14/2023 07:37:52 06/10/19 24 06/05/2023 polys omnog iker, diagn ostic , 6 yrs or older No observ ation record ed. BARCODE Not Available 2023 16:55:38 07/05/19 24 07/01/2023 polys omnog iker, titra tion study No observ ation record ed. BARCODE [facility] [address] [place], [address], 07/05/2023 11:57:25 Result Notes None recorded. Problems Name Problem SNOMED Code Status Onset Date Resolution Date Notes Provider Name and Address Organization Details Recorded Time Obstructive sleep apnea syndrome 69296792 Active 2023 Brandon Sandoval MD [address], [place], [address], [employer] 4 11:46:24 Periodic limb movement disorder 796340323 Active 2023 Brandon Sandoval MD [address], [place], [address], [employer] 4 12:03:54 Vitamin B12 deficiency (non anemic) 65607743 Active 2023 Brandon Sandoval MD [address], [place], [address], [employer] 4 11:10:58 Iron deficiency 96234559 Active 2023 Brandon Sandoval MD [address], [place], [address], [employer] 4 11:11:07 Notes:[facility] titration sleep s theodorady 07/01/23 sleep onset = 27.5 minutes, REM onset = none, George extra small/small Brevida nasal pillows @ 12 cmH2O, PLMI = 84 Ferritin 06/24/23 11 ng/mL Medical History: Delayed sleep phase syndrome Obesity with severe OSAHS, AHI = 33, 06/05/23, on CPAP c/o IVRC Hypertension Hyperlipidemia BUE reflex sympathetic dystrophy Vit B 12 deficiency Iron deficiency PLMD Procedure History: Left oophorocystectomy 2003 LSO 2004 2003 GABBY 2005 Occupational History: Disabled senior field engineer Problem Notes None recorded. Procedures Surgical History Date Name Laterality Status Provider Name and Address Organization Details Recorded Time 6 Hysterectomy completed Tamela Jacinto [facility] [employer] 06/20/2023 10:58:33 4 Cyst Removal completed Tamela Jacinto [employer] 06/20/2023 10:58:09 Imaging Results Imaging Date Name Status LastModified by Organiz ation Details LastModified Time 06/05/2023 polysomnogram, diagnostic, 6 yrs or older completed BARCODE Information not available 06/10/2023 16:55:38 07/01/2023 polysomnogram, titration study completed BARCODE [facility] [address] [place], [address], 07/05/2023 11:57:25 Procedure Notes None recorded. Medical Equipment None Reported. Allergies Allergen ID Allergen Name Allergen Category Reaction Reaction Severity Criticality Documentation Date Start Date Code Code System Note Provider Name and Address Organization Details Recorded Time 01844 aspirin medicatio n edema Not available Not available 04/18/2022 1191 RxNorm Not Available [employer] 3 13:57:14 73357 Substance with sulfonami de structure and antibacte rial mechanism of action (substanc e) medicatio n edema Not available Not available 06/06/2023 48865 8003 SNOMED Brandon Sandoval MD [address] [facility], [address], [place], [address], [employer] 4 19:48:53 Medications Name Sig Start Date Stop Date Status Note LastModified by Organization Details LastModified Time cyclobenzap rine 10 mg tablet TAKE 1 TABLET BY MOUTH AT BEDTIME NEEDED FOR MUSCLE SPASMS active Not Available Not Available No t Available Vitamin C 500 mg tablet TAKE 1 TABLET BY MOUTH EVERY DAY active Not Available Not Available No t Available meloxicam 15 mg tablet TAKE 1 TABLET BY MOUTH EVERY DAY NEEDED active Not Available Not Available No t Available prednisone 20 mg tablet TAKE 2 TABLETS BY MOUTH DAILY FOR 5 DAYS FOR COUGH 04/22 completed Not Available Not Available Not Available cyanocobala min (vit B-12) 1,000 mcg tablet Take 1 tablet every day by oral route. 2023 active Not Available Not Available Not Avai lable penicillin V potassium 500 mg tablet TK 1 T PO Q 12 H FOR 10 DAYS 06/05 completed Not Available Not Available Not Available topiramate 25 mg tablet 06/19 completed Not Available Not Available Not Available hydroxyzine HCl 50 mg tablet TAKE 1 TABLET BY MOUTH TWICE DAILY NEEDED FOR ITCHING. DO NOT DRIVE WHILE TAKING THIS MEDICATIO N active Not Available Not Available No t Available acetaminoph en 300 mg-codeine 30 mg tablet TK 1 T PO Q 8 H PRN FOR 5 DAYS. DISCONTIN UE TRAMADOL active Not Available Not Available No t Available tramadol 50 mg tablet 06/19 completed Not Available Not Available Not Available triamcinolo ne acetonide 0.1 % topical cream APPLY TOPICALLY TO THE AFFECTED AREA TWICE DAILY 06/19 completed Not Available Not Available Not Available magnesium oxide 400 mg (241.3 mg magnesium) tablet TAKE 1 TABLET BY MOUTH EVERY DAY active Not Available Not Available No t Available gabapentin 300 mg capsule Take 1 capsule every day by oral route at bedtime for 30 days. active Not Available Not Available No t Available omeprazole 20 mg capsule,del ayed release TAKE 1 CAPSULE BY MOUTH EVERY DAY active Not Available Not Available No t Available cephalexin 500 mg tablet TAKE 1 TABLET BY MOUTH EVERY 8 HOURS FOR 5 DAYS 04/22 completed Not Available Not Available Not Available hydroxyzine HCl 25 mg tablet TAKE 1 TABLET BY MOUTH THREE TIMES DAILY NEEDED 06/19 completed Not Available Not Available Not Available epinephrine 0.3 mg/0.3 mL injection, auto-inject or INJECT 1 PEN IN THE MUSCLE ONE TIME DIRECTED active Not Available Not Available No t Available methylpredn isolone 4 mg tablets in a dose pack TK UTD 06/05 completed Not Available Not Available Not Available albuterol sulfate HFA 90 mcg/actuati on [...] Available Lyllana 0.05 mg/24 hr transdermal patch active Not Available Not Available Not Available Vitals Date Recorded Body height Heart rate Oxygen saturation Oxygen saturation in Arterial blood by Pulse oximetry Systolic blood pressure Diastolic blood pressure Provider Name and Address Organization Details Last Updated DateTime 4 172.72 cm 97 /min 98 % 98 % 122 mm[Hg] 78 mm[Hg] Tamela Jacinto CMA Expert TA [facility] [employer] 4 10:54:03 Date Recorded Body temperature Body mass index (BMI) Body weight Heart rate Respiratory rate Provider Name and Address Organization Details Last Updated DateTime 06/20/2023 97.6 [degF] 38.2 kg/m2 198492. 68 g 97 /min 15 /min Brandon Sandoval MD [address] [facility], [facility] [address], [place], [address], Expert TA [facility] [employer] 4 12:08:47 Date Recorded Body height Body mass index (BMI) Body weight Body temperature Heart rate Oxygen saturation Oxygen saturation in Arterial blood by Pulse oximetry Systolic blood pressure Diastolic blood pressure Provider Name and Address Organization Details Last Updated DateTime 4 172.72 cm 38 kg/m2 762997. 09 g 97.8 [degF] 73 /min 98 % 98 % 126 mm[Hg] 74 mm[Hg] Tamela Jacinto [facility] Expert TA [facility] [employer] 4 10:39:40 Date Recorded Heart rate Respiratory rate Provider Vianney vallejo and Address Organization Details Last Updated DateTime 07/11/2023 73 /min 14 /min Brandon Sandoval MD [address], [place], [address], [facility] [employer] 07/11/2023 11:13:21 Date Recorded Body height Body mass index (BMI) Body weight Body temperature Heart rate Oxygen saturation Oxygen saturation in Arterial blood by Pulse oximetry Systolic blood pressure Diastolic blood pressure Provider Name and Address Organization Details Last Updated DateTime 172.72 cm 34.2 kg/m2 147891. 28 g 97.8 [degF] 84 /min 95 % 95 % 128 mm[Hg] 78 mm[Hg] Tamela Jacinto CMA [facility] [employer] 4 11:40:10 Date Recorded Heart rate Respiratory rate Provider Vianney vallejo and Address Organization Details Last Updated DateTime 11/07/2023 84 /min 15 /min Brandon Sandoval MD [address], [place], [address], [place] [employer] [facility] [employer] 11/10/2023 13:00:15 Social History Question Answer Notes LastModified by Organizat ion Details LastModified Time Tobacco Smoking Status Never Smoker Tamela Jacinto CMA null, [facility] [employer] 06/20/2023 10:59:53 What Is Your Level Of Alcohol Consumption? None [email or web address] Information not available 06/20/2023 Is Blood Transfusion Acceptable In An Emergency? Yes [email or web address] Information not available 06/20/2023 In The 14 Days Before Symptom Onset, Have You Had Close Contact With A Laboratory-confirm ed COVID-19 While That Case Was Ill? No [email or web address] Information n ot available 06/20/2023 In The 14 Days Before Symptom Onset, Have You Had Close Contact With A Person Who Is Under Investigation For COVID-19 While That Person Was Ill? No [email or web address] Information not available 06/20/2023 Are You Currently Employed? No [email or web address] Information not available 06/20/2023 What Type Of Diet Are You Following? REGULAR [email or web address] Information n ot available 06/20/2023 How Many Children Do You Have? 3 [email or web address] Information not available 06/20/2023 Do You Have Any Pets? Yes [email or web address] Information not available 06/20/2023 What Is Your Relationship Status? [email or web address] Information not available 06/20/2023 Do You Use Your Seat Belt Or Car Seat Routinely? Yes [email or web address] Information not available 06/20/2023 Do You Have Smoke And Carbon Monoxide Detectors In Your Home? Yes [email or web address] Information not available 06/20/2023 Are You Passively Exposed To Smoke? No [email or web address] Information no t available 06/20/2023 Do You Feel Stressed (tense, Restless, Nervous, Or Anxious, Or Unable To Sleep At Night)? PM4489-4 [email or web address] Information not available 06/20/2023 Do You Use Any Illicit Or Recreational Drugs? No [email or web address] Information not available 06/20/2023 Have You Recently Traveled Abroad? No [email or web address] Information not available 06/20/2023 Do You Have Any Dietary Restrictions? No [email or web address] Information not available 06/20/2023 Sex: Unknown Functional Status Question Answer Note LastModified by Organizat ion Details LastModified Time What is your exercise level? Occasional [email or web address] Information not available 06/20/2023 Mental Status None recorded. Family History Relationship Description Onset Age of this Age Resolved Age Notes LastModified by Organization Details LastModified Time Mother Diabetes mellitus [email or web address] Not available 2023 19:51:00 Mother Asthma [email or web address] Not available 19:51:09 Mother Cerebrovascu lar accident [email or web address] Not available 19:51:22 Mother Congestive heart failure [email or web address] Not available 2023 19:51:39 Mother Obstructive sleep apnea syndrome [email or web address] Not available 2023 11:53:48 Maternal Aunt Obstructive sleep apnea syndrome [email or web address] Not available 2023 11:53:38 Maternal Uncle Obstructive sleep apnea syndrome [email or web address] Not available 2023 11:53:44 Maternal Grandmother Congestive heart failure [email or web address] Not available 2023 11:55:08 Medical History No medical history recorded. Gynecological HistoryNo gynecological history recorded. Obstetrics History GPAL:G 0 P 0 0 0 0 Past Encounters Encounter ID Performer Location Encounter Start Date Encounter Closed Date Diagnosis/Indication Diagnosis SNOMED-CT Code Diagnosis ICD10 Code Diagnosis Note [id number] Brandon Sandoval MD [facility] [address] 06/20/2023 10:41:23 06/21/2023 08:56:56 Obstructive sleep apnea syndrome 71890795 G47.33 G47.36 G47.61 Periodic l imb movement disorder 363375264 G47.61 D50.8 E83.42 [id number] [place] [address] 07/11/2023 10:27:25 07/12/2023 08:42:59 Obstructive sleep apnea syndrome 48124348 G47.33 G47.36 G47.61 Vitamin B1 2 deficiency (non anemic) 83859366 E53.8 Iron deficiency 07761672 E61.1 [id number] Brandon Sandoval MD [place] [address] 11/07/2023 10:49:58 11/11/2023 10:33:32 Obstructive sleep apnea syndrome 49778864 G47.33 G47.36 G47.61 Vitamin B1 2 deficiency (non anemic) 10334792 E53.8 Iron deficiency 54108828 E61.1 Health Concerns Section Related Observation LastModified by Organization Detai ls LastModified Time None Recorded Concern Status LastModified by Organization Details LastModified Time None Recorded Advance Directives Directive None Recorded Payers Encounter Date Sequence Insurance Name Policy Number Policy Moyer Covered Member ID Moyer Member ID Guarantor Name 06/20/2023 1 [facility] ON OR AFTER 08/18/20 (MEDICAID REPLACEMENT - HMO) Kelle A Hemann [id number] Kelle A Hemann 07/11/2023 1 [facility] ON OR AFTER 08/18/20 (MEDICAID REPLACEMENT - HMO) Kelle A Hemann [id number] Kelle A Hemann 11/07/2023 1 [facility] ON OR AFTER 08/18/20 (MEDICAID REPLACEMENT - HMO) Kelle A Hemann [id number] Kelle A Hemann Notes Date Note Type Note Provider Name and Address Organization Details Recorded Time 06/20/2023 text/html Primary care/Ref erring provider: Radha Santiago PA-C During the [facility] diagnostic sleep study on 06/05/23, sleep onset = 46.5 minutes, REM onset = 228 minutes, AHI = 33, supine AHI = 48, PLMI = 37. At home, the patient sleeps from 2 am to 11 am and wakes up without an alarm. Snoring: heavy, since . Snorting: no Choking: no Coughing: no Gasping: yes Gagging: yes Sighing: yes Witnessed apnea: yes Twitching or jerking of leg(s), arm(s), body, head: yes Teeth grinding: no Teeth clenching: no Sleeptalking: yes Sleepwalking: no Sleep crying: yes Bedwetting: no Tongue/lip/gum/cheek biting: no Sleeping with open mouth: yes Sleep paralysis: no Hypnagogic hallucinations: no Hypnopompic hallucinations: no Vivid dreams: no Difficulty with sleep onset: yes Difficulty with sleep maintenance: yes Sleep interruptions: bodily aches Patient wakes up with: fatigue, xerostomia, sore throat, hoarse voice, mobility impairment, dexterity impairment Daytime cataplexy: no Morning hypersomnolence: yes Afternoon hypersomnolence: yes Caffeine sources in diet: none Associated medical and psychiatric conditions: Congestive heart failure: no Coronary artery disease: no Myocardial infarction: no Hypertension: yes Stroke: no Bronchial asthma: no Chronic obstructive pulmonary disease: no Depression: no Bipolar disorder: no Anxiety: no Panic disorder: no Posttraumatic stress disorder: no Attention deficit and hyperactivity disorder: no Obsessive Compulsive disorder: no Schizophrenia: no Schizoaffective disorder: no Personality disorder: no Chronic analgesic use: no Chronic sedative/hypnotic use: no EPWORTH SLEEPINESS SCALE (ESS) CHANCE OF DOZING SCORE 0 = would never doze 1 = slight chance of dozing 2 = moderate chance of dozing 3 = high chance of dozing SITUATION AND CHANCE OF DOZING Sitting and reading - 2 Watching television - 2 Sitting inactive in a public place (e.g. a theater or meeting) - 1 As a passenger in a car for an hour without a break - 2 Lying down to rest in the afternoon when circumstances permit - 3 Sitting and talking to someone - 1 Sitting quietly after lunch without alcohol - 2 In a car, while stopped for a few minutes in the traffic - 1 TOTAL SCORE 14 Subjectively, patient has a moderate chance of dozing. Brandon Sandoval MD [address] [place] [address], [facility] [address], [place], [address], [place] [facility] [employer] [facility] 06/20/2023 12:09:57 07/11/2023 text/html Primary care/Ref erring provider: Radha Santiago PA-C During the [facility] diagnostic sleep study on 06/05/23, sleep onset = 46.5 minutes, REM onset = 228 minutes, AHI = 33, supine AHI = 48, PLMI = 37. During the [facility] titration sleep study on 07/01/23, sleep onset = 27.5 minutes, REM onset = none. PLMI = 84 and she is here to go over her lab workup. The patient uses a [employer] AirSense 11 autoset unit with heated humidification. The patient does not need the ramp to start low and go up slowly on the pressure. There is some xerostomia in a.m. There is no hose/mask condensation with water. The patient wears a [employer] extra small/small Brevida nasal pillows without chin strap. There is no claustrophobia, no nostril/nose bridge irritation, no facial rash, no facial numbness, no nosebleeding. The patient feels more refreshed upon waking and daytime alertness is improved. Energy levels are sustained for the remainder of the day. At home, the patient sleeps from 2 am to 11 am and wakes up without an alarm. Snoring: heavy, since .Snorting: noChoking: noCoughing: noGasping: yesGagging: yesSighing: yesWitnessed apnea: yesTwitching or jerking of leg(s), arm(s), body, head: yesTeeth grinding: noTeeth clenching: noSleeptalking: yesSleepwalking: noSleep crying: yesBedwetting: noTongue/lip/gum/cheek biting: noSleeping with open mouth: yesSleep paralysis: noHypnagogic hallucinations: noHypnopompic hallucinations: noVivid dreams: noDifficulty with sleep onset: yesDifficulty with sleep maintenance: yesSleep interruptions: bodily achesPatient wakes up with: fatigue, xerostomia, sore throat, hoarse voice, mobility impairment, dexterity impairmentDaytime cataplexy: noMorning hypersomnolence: yesAfternoon hypersomnolence: yesCaffeine sources in diet: none Associated medical and psychiatric conditions:Congestive heart failure: noCoronary artery disease: noMyocardial infarction: noHypertension: yesStroke: noBronchial asthma: noChronic obstructive pulmonary disease: noDepression: noBipolar disorder: noAnxiety: noPanic disorder: noPosttraumatic stress disorder: noAttention deficit and hyperactivity disorder: noObsessive Compulsive disorder: noSchizophrenia: noSchizoaffective disorder: noPersonality disorder: noChronic analgesic use: noChronic sedative/hypnotic use: no EPWORTH SLEEPINESS SCALE (ESS) CHANCE OF DOZING SCORE0 = would never doze1 = slight chance of dozing2 = moderate chance of dozing3 = high chance of dozing SITUATION AND CHANCE OF DOZINGSitting and reading - 3Watching television - 2Sitting inactive in a public place (e.g. a theater or meeting) - 1As a passenger in a car for an hour without a break - 2Lying down to rest in the afternoon when circumstances permit - 3Sitting and talking to someone - 1Sitting quietly after lunch without alcohol - 3In a car, while stopped for a few minutes in the traffic - 1TOTAL SCORE 16Subjectively, patient has a moderate chance of dozing. Brandon Sandoval MD [address] [place] [address], [address], [place] [facility] 07/11/2023 11:24:28 11/07/2023 text/html Primary care/Ref erring provider: Radha Santiago PA-C During the [facility] diagnostic sleep study on 06/05/23, sleep onset = 46.5 minutes, REM onset = 228 minutes, AHI = 33, supine AHI = 48, PLMI = 37. During the [facility] titration sleep study on 07/01/23, sleep onset = 27.5 minutes, REM onset = none. PLMI = 84 and she has B12 and iron deficiencies. The patient uses a [employer] AirSense 11 autoset unit with heated humidification. The patient does not need the ramp to start low and go up slowly on the pressure. There is some xerostomia in a.m. There is no hose/mask condensation with water. The patient wears a [employer] extra small/small Brevida nasal pillows without chin strap. There is no claustrophobia, no nostril/nose bridge irritation, no facial rash, no facial numbness, no nosebleeding. The patient feels more refreshed upon waking and daytime alertness is improved. Energy levels are sustained for the remainder of the day. At home, the patient sleeps from 2 am to 11 am and wakes up without an alarm. Snoring: heavy, since .Snorting: noChoking: noCoughing: noGasping: yesGagging: yesSighing: yesWitnessed apnea: yesTwitching or jerking of leg(s), arm(s), body, head: yesTeeth grinding: noTeeth clenching: noSleeptalking: yesSleepwalking: noSleep crying: yesBedwetting: noTongue/lip/gum/cheek biting: noSleeping with open mouth: yesSleep paralysis: noHypnagogic hallucinations: noHypnopompic hallucinations: noVivid dreams: noDifficulty with sleep onset: yesDifficulty with sleep maintenance: yesSleep interruptions: bodily achesPatient wakes up with: fatigue, xerostomia, sore throat, hoarse voice, mobility impairment, dexterity impairmentDaytime cataplexy: noMorning hypersomnolence: yesAfternoon hypersomnolence: yesCaffeine sources in diet: none Associated medical and psychiatric conditions:Congestive heart failure: noCoronary artery disease: noMyocardial infarction: noHypertension: yesStroke: noBronchial asthma: noChronic obstructive pulmonary disease: noDepression: noBipolar disorder: noAnxiety: noPanic disorder: noPosttraumatic stress disorder: noAttention deficit and hyperactivity disorder: noObsessive Compulsive disorder: noSchizophrenia: noSchizoaffective disorder: noPersonality disorder: noChronic analgesic use: noChronic sedative/hypnotic use: no EPWORTH SLEEPINESS SCALE (ESS) CHANCE OF DOZING SCORE0 = would never doze1 = slight chance of dozing2 = moderate chance of dozing3 = high chance of dozing SITUATION AND CHANCE OF DOZINGSitting and reading - 2Watching television - 1Sitting inactive in a public place (e.g. a theater or meeting) - 1As a passenger in a car for an hour without a break - 1Lying down to rest in the afternoon when circumstances permit - 3Sitting and talking to someone - 1Sitting quietly after lunch without alcohol - 1In a car, while stopped for a few minutes in the traffic - 1TOTAL SCORE 11Subjectively, patient has a moderate chance of dozing. Brandon Sandoval MD [address] [place] [address], [place] [address], [place], [address], [place] [facility] 11/10/2023 13:00:32 OBGyn Episode No OBEpisode recorded.
--- NOTE | 2024-05-06 17:19 | ED_ITS ---
HPI - Extremity Problem General Chief complaint: Extremity Problem,Nontraumatic Stated complaint: paint in rt foot Time Seen by Provider: 05/06/24 17:00 Source: patient Mode of arrival: ambulatory Limitations: no limitations History of Present Illness HPI Narrative: 48 yo F presents with c/o pain to R foot. pt tripped over a toy 4 days ago and twisted R ankle/foot and then hit foot against metal toy. Arrived with ankle brace in place. Ambulatory without limp. taking ibuprofen at home to treat pain. All systems reviewed and negative except as noted above. Related Data Home Medications ?Medication ?Instructions ?Recorded ?Confirmed ?Last Taken ?Type vitamin B complex 1 tablet PO DAILY 01/12/24 01/17/24 Unknown History Allergies Allergy/AdvReac Type Severity Reaction Status Date / Time aspirin Allergy Mild STOMACH Verified 05/06/24 16:54 ULCERS bee venom protein (honey Allergy Mild Swelling Verified 05/06/24 16:54 bee) (bees) Sulfa (Sulfonamide AdvReac Intermediate Vomiting Verified 05/06/24 16:54 Antibiotics) Review of Systems Review of Systems: CONSTITUTIONAL: Denies fever, chills, or sweats. EYES: Denies visual changes, redness, or discharge. ENT: Denies rhinorrhea, congestion, sore throat, or otalgia. CARDIOVASCULAR: Denies chest pain, palpitations, or edema. RESPIRATORY: Denies cough or dyspnea. GASTROINTESTINAL: Denies abdominal pain, nausea, vomiting, or diarrhea. GENITOURINARY: Denies dysuria or hematuria. SKIN: Denies rash or itching. MUSCULOSKELETAL: Denies back pain or myalgia. Reports right foot and ankle pain. NEUROLOGIC: Denies headache, numbness, or weakness. PSYCHIATRIC: Denies anxiety or depression. All other systems reviewed are negative, except as documented in HPI. [facility] Past Medical History Medical History Asthma Bronchitis Complex regional pain syndrome Cyst of ovary Migraines Pneumonia Surgical History Surgical History H/O dilation and curettage H/O: hysterectomy History of removal of ovarian cyst Previous section Family History Family History Other Cerebrovascular accident Diabetes mellitus Heart disease Hypertension Social History Social History Smoking status: Former smoker Tobacco type: cigarettes Second hand tobacco smoke exposure: No Alcohol intake: never Substance use: current Substance use type: opiates Living arrangements: with family Occupation/Education: unemployed Gender identity (if verbalized by the patient): Female Sexual Orientation (if Verbalized by the Patient): Straight or Heterosexual Comments At time of signature, agree with nursing past medical, surgical, social and family history. There is no relevant family history pertinent to the presenting complaint. Exam Narrative: GENERAL: This is a well-nourished, well-developed patient, in no apparent distress. HEAD: normocephalic, atraumatic. EYES: PERRL. Sclera clear/white. Vision is grossly intact. EARS: External ears normal NOSE: External nose normal NECK: Neck supple, non-tender without lymphadenopathy, masses or thyromegaly. CARDIOVASCULAR: Regular rate and rhythm without murmurs, gallops, or rubs. RESPIRATORY: Clear to auscultation. Breath sounds equal bilaterally. No wheezes, rales, or rhonchi. SKIN: warm, Dry, intact with no suspicious lesions or rash, good texture and turgor. NEURO: awake, alert, and oriented to person, place and time. There were no obvious focal neurologic abnormalities. EXTREMITIES: tenderness to lateral aspect R foot just below malleolus and also generalized dorsal aspect. no deformity or swelling noted. distal NV intact. ROM decreased due to pain. Course Course Level of Care: Express Care Visit Vital Signs Vital signs: Vital Signs Temperature 36.0 C L 05/06/24 16:52 Pulse Rate 84 05/06/24 16:52 Respiratory Rate 16 05/06/24 16:52 Blood Pressure 143/81 H 05/06/24 16:52 Pulse Oximetry 100 05/06/24 16:52 Oxygen Delivery Room Air 05/06/24 16:52 Temperature 36.0 C L 05/06/24 16:52 Pulse Rate 84 05/06/24 16:52 Respiratory Rate 16 05/06/24 16:52 Blood Pressure 143/81 H 05/06/24 16:52 Pulse Oximetry 100 05/06/24 16:52 Oxygen Delivery Room Air 05/06/24 16:52 Reviewed MDM - Extremity (Nontraumatic) MDM Narrative Medical decision making narrative: x-ray of right foot is negative for fracture. distal neurovascularly intact. Patient placed in a postop shoe at her request. Recommend follow-up with her physician if pain is not. Please be advised this is a medical document. It is intended for [id number] communication. It is written in medical language and may contain unfamiliar abbreviations or verbiage. Medical documents are intended to carry relevant information, facts as evident, and the clinical opinion of the practitioner at the time of the encounter. This report may have been done utilizing a voice recognition system. Attempts have been made to correct errors. However, there may be uncorrected grammatical, spelling, and recognition errors present. The file time of this note does not necessarily represent the time of service. Imaging Data My impression: agree with radiologist Radiologist's impression: HISTORY: RT foot pain lat/across top foot/into toes fell 4x days ago COMPARISON: 09/12/2018 TECHNIQUE: 3 views of the right foot were performed FINDINGS: No acute fracture or dislocation is appreciated. No significant degenerative disease is noted. The base of the fifth metatarsal is intact. No calcaneal spur is noted. No significant soft tissue swelling is present. IMPRESSION: No acute fracture or dislocation. Discharge Plan Discharge Clinical Impression: Mild sprain of right ankle Qualifiers: Encounter type: initial encounter Qualified Code(s): S93.401A - Sprain of unspecified ligament of right ankle, initial encounter Patient Disposition: Home, Self-Care Condition: Stable Instructions: Ankle Sprain (ED) Additional Instructions: the x-ray of your right ankle was negative for fracture. Take ibuprofen as prescribed. Elevate when at rest. Apply ice as needed for pain. Follow-up with your primary care physician if pain is not improving. Patient Language: Upper Sorbian Prescriptions: New ibuprofen 800 mg tablet 800 mg PO TID PRN (Reason: pain) Qty: 30 0RF No Action albuterol sulfate [Ventolin HFA] 90 mcg/actuation HFA aerosol inhaler 2 puff INHALATION .Q4 hours PRN (Reason: cough) Qty: 18 0RF omeprazole 20 mg capsule,delayed release(DR/EC) 20 mg PO DAILY 30 Days Qty: 30 0RF vitamin B complex [B Complex-Vitamin B12] Tablet 1 tablet PO DAILY pregabalin 200 mg capsule 200 mg PO BID 7 Days Qty: 14 0RF Follow-up/Referrals: Jack,TANIKA Lopez [Primary Care Provider] - Time of Disposition: 17:30
== END 2024-05-06 17:36 | disposition home or self-care (01) ==
PROVIDERS: Emergency Provider Nurse Practitioner Family; PCP Physician Assistant
DX: S93.401A Sprain of unspecified ligament of right ankle, initial encounter (principal); W22.8XXA Striking against or struck by other objects, initial encounter; J45.909 Unspecified asthma, uncomplicated; Z87.891 Personal history of nicotine dependence
CPT/HCPCS: 73630; 99213; G0463

== ENCOUNTER 2024-08-15 13:52 | Emergency (ER) | payer OTHER, SELFPAY ==
--- NOTE | ~2024-08-15 | XR_ITS ---
EXAM: XR foot RT min 3V, XR ankle RT min 3V DATE: 08/15/2024 14:42 HISTORY: crush injury 1 week ago, dorsal pain . COMPARISON: None available. FINDINGS: Normal mineralization. No fracture or dislocation. No lytic or blastic lesion. Mild degene rative change at the ankle joint and first MTP joint. Minimal plantar enthesopathy. No erosion or per iosteal change. Soft tissues within normal limits. IMPRESSION: No acute osseous finding in the right ankle or foot. Reviewed, dictated and finalized at location K. IMPRESSION: No acute osseous finding in the right ankle or foot.
[2024-08-15 14:02] VITALS: BP 120/86; PULSE 79; RESP 16; TEMP 36.3; O2SAT 100
--- NOTE | 2024-08-15 16:58 | ED.LOWEXIN ---
HPI - Extremity Injury (Lower) General Chief Complaint: Extremity Injury, Lower Stated Complaint: R FOOT INJURY Time Seen by Provider: 08/15/24 14:25 Source: patient and RN notes reviewed Mode of arrival: ambulatory Limitations: no limitations History of Present Illness HPI Narrative: 48-year-old Presents to [facility] complaining of injury to right foot approximately 1 week ago. Patient reports she dropped a 35 lb weight onto the top of her right foot. Patient states it hurts worse to ambulate on her right foot. Patient's has been taking Tylenol or ibuprofen with mild relief.. Patient denies any numbness, tingling or any other injuries. Patient has a decent significant past medical history. Related Data Home Medications ?Medication ?Instructions ?Recorded ?Confirmed ?Last Taken ?Type vitamin B complex 1 tablet PO DAILY 01/12/24 08/15/24 Unknown History duloxetine 60 mg capsule,delayed mg PO 08/15/24 Unknown History release Allergies Allergy/AdvReac Type Severity Reaction Status Date / Time aspirin Allergy Mild STOMACH Verified 08/15/24 14:01 ULCERS bee venom protein (honey Allergy Mild Swelling Verified 08/15/24 14:01 bee) (bees) Sulfa (Sulfonamide AdvReac Intermediate Vomiting Verified 08/15/24 14:01 Antibiotics) Review of Systems Review of Systems: CONSTITUTIONAL: Denies fever, chills, or sweats. EYES: Denies visual changes, redness, or discharge. ENT: Denies rhinorrhea, congestion, sore throat, or otalgia. CARDIOVASCULAR: Denies chest pain, palpitations, or edema. RESPIRATORY: Denies cough or dyspnea. GASTROINTESTINAL: Denies abdominal pain, nausea, vomiting, or diarrhea. GENITOURINARY: Denies dysuria or hematuria. SKIN: Denies rash, wound, or itching. MUSCULOSKELETAL: Denies back pain, joint pain, or myalgia. Positive for right foot injury and swelling NEUROLOGIC: Denies headache, numbness, or weakness. PSYCHIATRIC: Denies anxiety or depression. All other systems reviewed are negative, except as documented in HPI. [facility] Past Medical History Medical History Cyst of ovary Pneumonia Bronchitis Asthma Migraines Complex regional pain syndrome Surgical History Surgical History History of removal of ovarian cyst H/O dilation and curettage Previous section H/O: hysterectomy Family History Family History Other Cerebrovascular accident Diabetes mellitus Heart disease Hypertension Social History Social History Smoking status: Former smoker Tobacco type: cigarettes Second hand tobacco smoke exposure: No Alcohol intake: never Substance use: current Substance use type: opiates Living arrangements: with family Occupation/Education: unemployed Gender identity (if verbalized by the patient): Female Sexual Orientation (if Verbalized by the Patient): Straight or Heterosexual Comments At the time of my signature, I reviewed and agree with the nursing past medical, surgical, social, and family history. There is no relevant family history pertinent to the patient complaint. Exam Narrative: GENERAL: This is a well-nourished, well-developed adult, in no apparent distress. They are non ill-appearing, nontoxic appearing. HEAD: normocephalic, atraumatic. EYES: Sclera clear/white. Vision is grossly intact. Conjunctiva normal. Extraocular movement intact. EARS: External ears normal Hearing grossly intact. NOSE: External nose normal THROAT: Mucous membranes moist NECK: Neck supple CARDIOVASCULAR: Regular rate and rhythm RESPIRATORY: Respiratory rate normal, respiratory effort nonlabored, no respiratory distress NEURO: awake, alert, and oriented to person, place and time. There were no obvious focal neurologic abnormalities. EXTREMITIES: Right foot: No obvious deformity, injury, bruising, redness. There is mild swelling to the right foot. Limited range of motion due to pain. Patient is able to dorsiflex and plantar flex her foot. Tenderness to palpation to the dorsal surface of the foot, tenderness to palpation to the lateral and medial ankle. Patient is able to wiggle her toes. Capillary refill less than 3 seconds. Right pedal Pulse 2 +palpable. Normal sensation. Neurovascular status intact distal injury. BACK: Nontender without deformity. Course Course Emergency Course: Portions of this record may have been created with voice recognition software Level of Care: Express Care Visit Vital Signs Vital signs: Vital Signs Temperature 97.3 F L 08/15/24 14:02 Pulse Rate 79 08/15/24 14:02 Respiratory Rate 16 08/15/24 14:02 Blood Pressure 120/86 08/15/24 14:02 Pulse Oximetry 100 08/15/24 14:02 Oxygen Delivery Room Air 08/15/24 14:02 Temperature 97.3 F L 08/15/24 14:02 Pulse Rate 79 08/15/24 14:02 Respiratory Rate 16 08/15/24 14:02 Blood Pressure 120/86 08/15/24 14:02 Pulse Oximetry 100 08/15/24 14:02 Oxygen Delivery Room Air 08/15/24 14:02 Reviewed MDM - Extremity Injury (Lower) MDM Narrative Medical decision making narrative: X-ray negative for any fracture or acute findings. Likely a crush injury/contusion of the right foot. A patient postop shoe an Ashkan wrap for comfort. Offered patient crutches and she declined. Discussed physical exam findings. Advised supportive measures and signs/symptoms to go to the ER. Pt is appropriate for outpt treatment and f/u. Differential Diagnosis Differential diagnosis: Likely other (Crush injury, foot fracture, ankle fracture, foot sprain, foot contusion) Imaging Data Radiologist's impression: ITS Impressions Ankle X-Ray 08/15/24 14:42 IMPRESSION: No acute osseous finding in the right ankle or foot. Foot X-Ray 08/15/24 14:42 IMPRESSION: No acute osseous finding in the right ankle or foot. Critical Care Time Critical Care Time Critical Care Time: No Discharge Plan Discharge Clinical Impression: Crush injury of right foot Qualifiers: Encounter type: initial encounter Qualified Code(s): S97.81XA - Crushing injury of right foot, initial encounter Patient Disposition: Home Condition: Stable Instructions: Foot Sprain (ED), Crush Injury (ED) Additional Instructions: The x-ray of your right foot and ankle are negative for any fracture or acute findings. Rest and elevate the leg; bear weight as tolerated Apply ice 15-20 minute intervals several times a day Keep it wrapped with ASHKAN or use a soft ankle splint Motrin 600mg -800mg every 8 hours, alternate with Tylenol 1000mg every 8 hours as needed Follow up with your primary care provider, windows server architect, orthopedist in 1 week if pain continues to persist. Patient Language: South African Prescriptions: No Action albuterol sulfate [Ventolin HFA] 90 mcg/actuation HFA aerosol inhaler 2 puff INHALATION .Q4 hours PRN (Reason: cough) Qty: 18 0RF omeprazole 20 mg capsule,delayed release(DR/EC) 20 mg PO DAILY 30 Days Qty: 30 0RF vitamin B complex [B Complex-Vitamin B12] Tablet 1 tablet PO DAILY pregabalin 200 mg capsule 200 mg PO BID 7 Days Qty: 14 0RF ibuprofen 800 mg tablet 800 mg PO TID PRN (Reason: pain) Qty: 30 0RF duloxetine 60 mg capsule,delayed release(DR/EC) PO Follow-up/Referrals: Brock Degroot DPM [Physician] - Jack,TANIKA Lopez [Primary Care Provider] - Morris Griffin MD [Physician] - Time of Disposition: 14:52
== END 2024-08-15 15:00 | disposition home or self-care (01) ==
PROVIDERS: PCP Physician Assistant
DX: S97.81XA Crushing injury of right foot, initial encounter (principal); W20.8XXA Other cause of strike by thrown, projected or falling object, initial encounter; Z87.891 Personal history of nicotine dependence; J45.909 Unspecified asthma, uncomplicated
CPT/HCPCS: 73610; 73630; 99213; G0463

== ENCOUNTER 2025-01-12 13:26 | Emergency (ER) | payer OTHER, SELFPAY ==
[2025-01-12 13:37] VITALS: BP 104/65; PULSE 94; RESP 20; TEMP 36.5; O2SAT 100
--- NOTE | 2025-01-12 13:57 | ED_ITS ---
HPI - URI/Sore Throat General Chief Complaint: Upper Respiratory Infection Stated Complaint: URI symptoms cannot catch her breath Time Seen by Provider: 01/12/25 14:00 Source: patient and RN notes reviewed Mode of arrival: ambulatory Limitations: no limitations History of Present Illness HPI Narrative: 49-year-old female presents Express Care complaining of upper respiratory symptoms for approximately 1 week. Patient reports productive to nonproductive cough, nasal drainage, intermittent shortness of breath. Patient reports history of asthma. Patient on label define her inhaler. Patient denies any chest pain, fevers, eczema chills, nausea vomiting, diarrhea, difficulty breathing, or any other symptoms. Patient denies any significant past medical history. Patient's has tried cold and flu medication without relief. Related Data Home Medications ?Medication ?Instructions ?Recorded ?Confirmed ?Last Taken ?Type vitamin B complex 1 tablet PO DAILY 01/12/24 0 08/15/24 Unknown History duloxetine 60 mg capsule,delayed mg PO 08/15/24 Unkno wn History release Allergies Allergy/AdvReac Type Severity Reaction Status Date / Time bee venom protein (honey Allergy Mild Swelling Verified 01/12/25 13:37 bee) (bees) amoxicillin (From Augmentin) Allergy Swelling Verified 01/12/25 13:37 clavulanic acid (From Allergy Swelling Verified 01/12/25 13:37 Augmentin) Sulfa (Sulfonamide AdvReac Intermediate Vomiting Verified 01/12/25 13:37 Antibiotics) aspirin AdvReac Mild STOMACH Verified 01/12/25 13:37 ULCERS Review of Systems Review of Systems: CONSTITUTIONAL: Denies fever, chills, or sweats. EYES: Denies visual changes, redness, or discharge. ENT: Denies rhinorrhea, sore throat, or otalgia. Positive for congestion. CARDIOVASCULAR: Denies chest pain, palpitations, or edema. RESPIRATORY: Positive cough and dyspnea. Negative for wheezing or difficulty breathing. GASTROINTESTINAL: Denies abdominal pain, nausea, vomiting, or diarrhea. GENITOURINARY: Denies dysuria or hematuria. SKIN: Denies rash or itching. MUSCULOSKELETAL: Denies back pain, joint pain, or myalgia. NEUROLOGIC: Denies headache, numbness, or weakness. PSYCHIATRIC: Denies anxiety or depression. All other systems reviewed are negative, except as documented in HPI. [facility] Past Medical History Medical History Cyst of ovary Pneumonia Bronchitis Asthma Migraines Complex regional pain syndrome Surgical History Surgical History History of removal of ovarian cyst H/O dilation and curettage Previous section H/O: hysterectomy Family History Family History Other Cerebrovascular accident Diabetes mellitus Heart disease Hypertension Social History Social History Smoking status: Former smoker Tobacco type: cigarettes Second hand tobacco smoke exposure: No Alcohol intake: never Substance use: current Substance use type: opiates Living arrangements: with family Occupation/Education: unemployed Gender identity (if verbalized by the patient): Female Sexual Orientation (if Verbalized by the Patient): Straight or Heterosexual Comments At the time of my signature, I reviewed and agree with the nursing past medical, surgical, social, and family history. There is no relevant family history pertinent to the patient complaint. Exam Narrative: GENERAL: This is a well-nourished, well-developed adult, in no apparent distress. They are nontoxic appearing. Patient ill-appearing HEAD: normocephalic, atraumatic. EYES: Sclera clear/white. Conjunctiva normal. Vision is grossly intact. Extraocular movements intact EARS: External ears normal, auditory canals clear and without drainage, TMs normal without perforation. Hearing grossly intact. NOSE: External nose normal with no obvious nasal discharge, nasal turbinates erythematous, no rhinorrhea. THROAT: Mucous membranes moist, posterior pharynx erythematous. Uvula midline. Postnasal drip present. NECK: Neck supple, non-tender without lymphadenopathy, masses or thyromegaly. CARDIOVASCULAR: Regular rate and rhythm without murmurs, gallops, or rubs. RESPIRATORY: Clear to auscultation. Breath sounds equal bilaterally. No wheezes, rales, or rhonchi. Respiratory rate normal, respiratory effort nonlabored, no respiratory distress SKIN: warm, Dry, intact with no suspicious lesions or rash, good texture and turgor. NEURO: awake, alert, and oriented to person, place and time. There were no obvious focal neurologic abnormalities. EXTREMITIES: No joint tenderness, effusion, or edema noted. BACK: Nontender without deformity. Course Course Emergency Course: Portions of this record may have been created with voice recognition software Level of Care: Express Care Visit Vital Signs Vital signs: Vital Signs Temperature 97.7 F 01/12/25 13:37 Pulse Rate 94 01/12/25 13:37 Respiratory Rate 20 01/12/25 13:37 Blood Pressure 104/65 01/12/25 13:37 Pulse Oximetry 100 01/12/25 13:37 Oxygen Delivery Room Air 01/12/25 13:37 Temperature 97.7 F 01/12/25 13:37 Pulse Rate 94 01/12/25 13:37 Respiratory Rate 20 01/12/25 13:37 Blood Pressure 104/65 01/12/25 13:37 Pulse Oximetry 100 01/12/25 13:37 Oxygen Delivery Room Air 01/12/25 13:37 Reviewed MDM - URI/Sore Throat MDM Narrative Medical decision making narrative: Appears patient likely has a purulent bronchitis. Given her length of symptoms will go ahead and treat her with azithromycin and prednisone. Will refill patient's albuterol inhaler and syndrome with benzonatate tablets for cough. Patient nontoxic appearing, no apparent distress. Vital signs hemodynamically stable. Lung sounds clear to auscultation. Discussed physical exam findings. Advised supportive measures and signs/symptoms to go to the ER. Pt is appropriate for outpt treatment and f/u. Differential Diagnosis Differential diagnosis: Likely upper respiratory infection, viral infection, bronchitis and pharyngitis Critical Care Time Critical Care Time Critical Care Time: No Discharge Plan Discharge Clinical Impression: Acute purulent bronchitis Patient Disposition: Home Condition: Stable Instructions: Antibiotic Form, Acute Bronchitis (ED) Additional Instructions: Take prednisone as directed. Take azithromycin as directed. Finish a completely even if you start to feel better. Use albuterol inhaler as needed for wheezing or shortness of breath. Benzonatate tablets as needed for cough. You may take ibuprofen 600 mg to 800 mg every 6-8 hours. Do not exceed more than 800 mg of ibuprofen per dose. Do not exceed more than 3200 mg ibuprofen in a day. You may take up to 1000 mg Tylenol every 6-8 hours. Do not exceed 1000 mg per dose, do exceed more than 4000 mg of Tylenol in a day. Symptomatic treatment includes: rest, fluids, and increase humidity of the air at home. Follow up with your primary care provider 3-5 days Go to the ER for worsening symptoms, difficulty breathing, able to talk in full sentences, chest pain, vomiting, or any serious concerns Patient Language: [place] Islander Prescriptions: New azithromycin 250 mg tablet See Rx Instructions .ROUTE .COMPLEX Qty: 6 0RF Rx Instructions: For 250 mg dose pack: take 500 mg today (day 1), then 250 mg for 4 days (days 2-5) benzonatate 200 mg capsule 200 mg PO TID PRN (Reason: cough) Qty: 20 0RF prednisone 20 mg tablet 40 mg PO DAILY 5 Days Qty: 10 0RF albuterol sulfate [Ventolin HFA] 90 mcg/actuation HFA aerosol inhaler 2 puff inhalation QID PRN (Reason: shortness of breath or wheezing) Qty: 8.5 0RF (DME) Space Chamber Spacer See Rx Instructions .Route Qty: 1 0RF Rx Instructions: As directed No Action vitamin B complex [B Complex-Vitamin B12] Tablet 1 tablet PO DAILY pregabalin 200 mg capsule 200 mg PO BID 7 Days Qty: 14 0RF duloxetine 60 mg capsule,delayed release(DR/EC) PO Follow-up/Referrals: PHYSICIAN,SAFETY REPRESENTATIVE [Primary Care Provider, Internal Medicine] Stand Alone Forms: Work/School Release IP Time of Disposition: 13:52
--- OUTSIDE RECORDS SUMMARY | 2025-01-12 15:07 | XMS_ITS | Clinical Summary ---
Author Organization [facility] Address [address] [place] [address] Phone Care Team Providers Care Leaf Coverer Name Role Phone JackRadha nieves Alexandro LYNN Primary Care Provider [phone] Tarik Leung MD Unavailable [phone] Allergies Active Allergy Reactions Criticality Noted Date [...] 1:26 PM CDT Height 172.7 cm (5' 8) 12/22/2021 1:26 PM CDT Body Mass Index 30.41 12/22/2021 1:26 PM CDT Plan of Treatment Health Maintenance Due Date Last Done Comments Hepatitis C Virus (HCV) Screening 1977 Hepatitis B Immunization (1 of 3 - 19+ 3-dose series) 1996 Cologuard 2022 Colonoscopy 2022 Colorectal Cancer Screening 2022 Immunochemical Fecal Occult Blood 2022 Influenza Immunization (#1) 2024 SARS-COV-2 Immunization ( season) 2024 Respiratory Syncytial Virus (RSV) Immunization (Adult) (1 - 1-dose 75+ series) 2052 DTaP/Tdap/Td Immunization Discontinued 08/06/2022 TdaP Immunization Completed 08/06/2022 Human Papillomavirus (HPV) Immunization Aged Out No longer eligible b ased on patient's age to complete this topic Meningococcal Immunization (ACWY) Aged Out No longer eligible based on patient's age to complete this topic Pneumococcal Immunization Combined Aged Out No longer eligible based on patient's age to complete this topic Rotavirus Immunization Aged Out No lo nger eligible based on patient's age to complete this topic Insurance MEDICAID [employer] Care Teams Leaf Coverer Relationship Specialty Start Date End Date Radha Santiago PAC [address] [place] [address] PCP - General Physician Towing Pilot 08/22/21 Tarik Leung MD [address] [place] [id number] Consulting Physician Neurology 12/22/21
--- OUTSIDE RECORDS SUMMARY | 2025-01-12 15:07 | XMS_ITS | Clinical Summary ---
Author Organization [facility] Address [address] [place] [address] Care Team Providers Care Mapping Pilot Name Role Phone Enrique Elizondo MD Primary Care Provider [phone] Enrique Elizondo MD Unavailable Source Comments [facility],non-owned Affiliates and Associated Physician Practices is amultiple site organization consisting of ambulatory clinics and hospital sitesin [place], [place], [place] and [place]. This disclosure is being madepursuant to the Care Everywhere program and may not contain all informatio navailable regarding this patient. Last updated 17.[facility] Allergies Active Allergy Reactions Criticality Noted Date Comments Aspirin Diarrhea Medium 03/31/2019 Sulfamethazine GI Discomfort Medium 03/31/2019 Medications * Be aware that medications may not be up to date on this document. Alwaysverify current medications with the patient. gabapentin (NEURONTIN) 300 MG capsule TK 1 C PO BID. AVOID DRIVING OR OPERATING MACHINES 0 Active Active Problems No known active problems Social History Tobacco Use Types Packs/Day Years Used Date Smoking Tobacco: Never Smokeless Tobacco: Never Alcohol Use Standard Drinks/Week Comments Yes 0 (1 standard drink = 0.6 oz pur e alcohol) Comments Unknown Sex and Gender Information Value Date Recorded Sex Assigned at Not on file Legal Sex Female 10:27 AM SCREEN WRITER Gender Identity Not on file Sexual Orientation Not on file Last Filed Vital Signs Vital Sign Reading Time Taken Comments Blood Pressure 141/83 03/31/2019 2:22 PM SCREEN WRITER Pulse 90 03/31/2019 2:22 PM SCREEN WRITER Temperature 36.7 C (98 F) 03/31/2019 2:22 PM SCREEN WRITER Respiratory Rate - - Oxygen Saturation 96% 03/31/2019 2:22 PM SCREEN WRITER Inhaled Oxygen Concentration - - Weight 77.1 kg (170 lb) 03/31/2019 2:22 PM SCREEN WRITER Height 172.7 cm (5' 8) 03/31/2019 2:22 PM SCREEN WRITER Body Mass Index 25.85 03/31/2019 2:22 PM SCREEN WRITER Plan of Treatment Health Maintenance Due Date Last Done Comments COLOGUARD (AGES 45-75) - COL ON CA SCREENING 1977 COLON MONITORING 1977 COLONOSCOPY - COLON CA SCREENING 1977 CT COLONOGRAPHY - COLON CA SCREENING 1977 Colorectal Cancer Screening 1977 FIT - COLON CA SCREENING 1977 FLEX SIG - COLON CA SCREENING 1977 LIPID TESTING 1977 MAMMOGRAM 1977 HIV SCREENING 1992 HEPATITIS C SCREENING 11/14/1995 DTAP/TDAP/TD VACCINES (1 - Tdap) 1996 HEPATITIS B VACCINE (1 of 3 - 19+ 3-dose series) 1996 Cervical Cancer Screening 1998 PAP SMEAR 1998 PAP with HPV 11/19/2007 SCREENING FOR DIABETES 03/31/2019 DEPRESSION SCREENING 02/19/2024 COVID-19 VACCINE (1 - 2024-2 6 season) 2024 INFLUENZA VACCINE (#1) 2024 ZOSTER VACCINE (1 of 2) 11/19/2027 HIB [...] Progress Patient-Stated? Author Mobility General No Charity Chapman, RN Note: Expected end date: 06/29/2019 The goal is to maintain or improve your mobility at the optimum level for you. Interventions: [place] [address] [facility] Care Teams Mapping Pilot Relationship Specialty Start Date End Date Enrique Elizondo MD PCP - General 03/31/19 Enrique Elizondo MD [address] [facility] [address] [place] [address] Family Medicine 03/31/19
== END 2025-01-12 13:55 | disposition home or self-care (01) ==
DX: J20.9 Acute bronchitis, unspecified (principal); J45.909 Unspecified asthma, uncomplicated; Z87.891 Personal history of nicotine dependence
CPT/HCPCS: 99213; G0463